=== PATIENT | female | born 1935 | race Caucasian/White ===

== ENCOUNTER 2017-09-28 12:37 | Emergency (ER) | payer MEDICARE, OTHER, SELFPAY ==
[2017-09-28 12:38] VITALS: BP 150/62; PULSE 73; RESP 17; TEMP 36.6; O2SAT 94; BMI 23.6
[2017-09-28 12:50] VITALS: BP 140/63; BP 143/58; BP 149/56; PULSE 66; PULSE 67
--- NOTE | 2017-09-28 12:50 | CT_ITS ---
STUDY: CT BRAIN WITHOUT CONTRAST REASON FOR EXAM: Female, 82 years old. Headache and dizziness. RADIATION DOSAGE (If Supplied By Facility): CTDIvol = ( 44.99 ) mGy, DLP = ( 745.49 ) mGycm TECHNIQUE: Transaxial CT imaging of the brain was performed without administration of intravenous contrast material. Multiplanar reformations are submitted for interpretation. Individualized dose optimization techniques were used for this CT. COMPARISON: Prior comparison studies are not available for review at this time. FINDINGS: Normal soft tissue structures. Normal calvarium. There is asymmetry of the ventricles consistent with an anatomic variant. There are areas of decreased attenuation within the white matter tracts of the supratentorial brain, consistent with microvascular disease changes. Normal basal ganglia and thalami. Normal brainstem. Normal cerebellum. There is no intracranial hemorrhage. There is mild atherosclerotic calcification of intracranial arteries. Normal visualized paranasal sinuses. CT/Brain/Head without Contrast IMPRESSION: 1. Chronic involutional changes of the brain. 2. No CT evidence of acute intracranial hemorrhage. Electronically Signed: Yolanda Kwan MD at 13:52 EST , Service support ,
--- NOTE | 2017-09-28 12:51 | EKG12_ITS ---
Test Reason : DIZZINESS Blood Pressure : / mmHG Vent. Rate : 068 BPM Atrial Rate : 068 BPM P-R Int : 124 ms QRS Dur : 088 ms QT Int : 434 ms P-R-T Axes : 083 057 060 degrees QTc Int : 461 ms Sinus rhythm with Premature supraventricular complexes Otherwise normal ECG Confirmed by BUZZ CHAUHAN, BRIANNE ([id number]), fashion editor SHARI HOOD ([id number]) on 10/01/2017 10:31:49 AM Referred By: SHANT Confirmed By:BRIANNE GERBER MD
--- NOTE | 2017-09-28 13:00 | ED.DCSUM_ITS ---
- ER Visit Summary Date of Service: 09/28/17 Chief Complaint: Lightheaded History of Present Illness: The patient is a [address] Ibarra. She reports that she woke up this morning and was very lightheaded. States that it did not get worse when she stood. She denies any syncope. She denies any vertigo. She denies any chest pain or palpitations. Patient does report that she had nausea this morning. She did not vomit. Patient denies any fever, chills, chest pain, cough, trouble breathing, abdominal pain, diarrhea, melena or hematochezia. She has had no dysuria or frequency. No rash, headache, numbness, weakness, slurred speech, or double vision. Physical Examination: Vitals: Stable. Afebrile. General: Well-nourished and well-developed. Head: Normocephalic atraumatic. Neck: Supple, no lymphadenopathy. No JVD. Nontender. Cardiovascular: Regular rate and rhythm. No murmurs. Respiratory: No respiratory distress. Clear to auscultation bilaterally. Abdominal: Soft, nontender, nondistended, normal bowel sounds. No guarding, rebound, or peritoneal signs. Back: Nontender. Extremities: Nontender, no edema. Skin: Normal color, no rash. Neurologic: Alert and oriented ?3. Cranial nerves II through XII are intact. Normal strength and sensation. Psych: Normal affect. Test Results: EKG is sinus at [address]pecific [address] changes. Is unchanged from 2012. UA is negative. CBC is marked for a white count 11.2 with 78 segmented neutrophils and 11 lymphocytes. Chem-7 is marked for sodium of 135, chloride 96, glucose 135, and BUN/creatinine ratio 22.8. The only other sodium she has had here was in June 2012 and that was 135. Emergency Department Course and Treatment: Patient had negative orthostatic vital signs. She is ambulated about the emergency department without difficulty. Treatment Plan: Patient will be discharged instructions to follow-up with her primary care physician in 1 week for another exam. Return to the emergency department for any worsening symptoms. Disposition: To home in improved and stable condition. Impression: 1. Lightheadedness, uncertain cause. 2. Mild hyponatremia. This note was generated with [employer] software. It may contain incorrect words, spelling, and punctuation that were not noted in review of the chart prior to signing ED Disposition - Plan for ED Patient: Chief Complaint: Dizziness Instructions: ED Near Syncope Unkn Referrals: Karl Ibarra MD [Primary Care Provider] - 1 Week
[2017-09-28 13:10] LABS: Absolute Lymphocyte Count 1.22 X10^3/ul (0.83-4.51); Absolute Neutrophil Count 8.8 X10^3/uL (2.0-7.7); Basophil# 0.08 X10^3/uL; Basophil% 0.7 % (0-1); Eosinophil# 0.19 X10^3/uL; Eosinophils% 1.7 % (0-5); Hematocrit 37.7 % (37-47); Lymphocyte # 1.22 X10^3/ul (4.0); Lymphocyte % 10.9 % (19-41); Mean Corp Hgb Conc 34.5 g/gl (32-36); Mean Corpuscular Hgb 30.2 pg (27.0-32.0); Mean Corpuscular Volume 87.7 fL (81-99); Mean Platelet Vol. 10.4 fl (6.2-12.0); Monocyte# 0.89 X10^3/uL; Neutrophil # 8.76 X10^3/uL (2.7-7.7); Neutrophil % 78.3 % (47-70); Platelet Count 243 K/mm3 (150-450); RBC Distribution Width CV 15.1 % (11.6-14.6); RBC Distribution Width SD 48.3 fl (35.1-43.9); White Blood Count 11.2 K/mm3 (4.4-11.0)
[2017-09-28 13:11] LABS: POSITIVE COUNT NO; POSITIVE DIFFERENTIAL NO; POSITIVE MORPHOLOGY NO
[2017-09-28 13:22] LABS: Anion Gap 10 (5-15); BUN 16 mg/dL (7-18); BUN/Creat Ratio 22.8 RATIO (10-20); Calcium,Total 8.6 mg/dL (8.5-10.1); Chloride 96 mmol/L (98-107); EST Glomerular Filtration Rate 85 mL/min (>60); Est Glom Filt Rate - Afr Amer 103 mL/min (>60); Glucose 135 mg/dL (70-110); Potassium 3.9 mmol/L (3.5-5.1); Sodium Level 130 mmol/L (136-145)
[2017-09-28 13:49] LABS: Bacteria 0 SEEN /hpf (None Seen); Mucous, Urine 0 SEEN /hpf (<or=2+); Squamous Epithelial Cells - UA 0 SEEN /hpf (5-10)
[2017-09-28 13:50] LABS: Color, Urine Yellow (Yellow); Glucose, Dipstick Normal (Normal); Ketone-Dipstick Negative (Negative); Leukocyte Esterase-Dipstick 25 /ul (Negative); Nitrite-Dipstick Negative (Negative); Occult Blood-Urine 10 /ul (Negative); Protein-Dipstick Negative (Negative); Specific Gravity, Urine 1.015 (1.002-1.030); Urine Bilirubin Dipstick Negative (Negative); Urine Clarity Clear (Clear); Urine Urobilinogen Normal (Normal)
[2017-09-28 14:00] LABS: Red Blood Cells-Urine 0-5 SEEN /hpf (0-5); White Blood Cells 0-5 SEEN /hpf (0-5)
[2017-09-28 14:53] VITALS: BP 144/59; PULSE 66; RESP 14
== END 2017-09-28 14:56 | disposition home or self-care (01) ==
LOC: ED 13:12
PROVIDERS: Emergency Provider Emergency Medicine; Family Provider Internal Medicine; PCP Internal Medicine
DX: R42 Dizziness and giddiness (principal); E87.1 Hypo-osmolality and hyponatremia; I49.1 Atrial premature depolarization; I10 Essential (primary) hypertension; E78.00 Pure hypercholesterolemia, unspecified; M81.0 Age-related osteoporosis without current pathological fracture; Z79.899 Other long term (current) drug therapy
CPT/HCPCS: 70450; 80048; 81001; 85025; 93005; 99285; J7030; J7040; A4216

== ENCOUNTER 2019-03-06 17:21 | Inpatient (IN) | payer MEDICARE, OTHER, SELFPAY ==
[2019-03-06] VITALS (9 sets, daily range): BP systolic 131–133; BP diastolic 52–62; PULSE 69–86; RESP 12–22; TEMP 36.6–36.8; O2SAT 83–98; BMI 22.3; BMI 22.9
--- NOTE | 2019-03-06 17:52 | EKG12_ITS ---
Test Reason : SOB Blood Pressure : / mmHG Vent. Rate : 079 BPM Atrial Rate : 079 BPM P-R Int : 122 ms QRS Dur : 090 ms QT Int : 410 ms P-R-T Axes : 078 059 049 degrees QTc Int : 470 ms Normal sinus rhythm Nonspecific ST and T wave abnormality Abnormal ECG Confirmed by BUZZ CHAUHAN, BRIANNE ([id number]), editorial specialist RENAE LOZOYA ([id number]) on 03/09/2019 1:15:14 PM Referred By: Bishop Rowan Confirmed By:BRIANNE GERBER MD
--- NOTE | 2019-03-06 18:00 | RAD_ITS ---
STUDY: X-RAY CHEST REASON FOR EXAM: Female, 83 years old. Shortness of breath TECHNIQUE: Frontal view of the chest COMPARISON: None. FINDINGS: COPD changes are present. Diffuse increased interstitial prominence is present. Right greater than left apical nodular opacities are present. There is no pneumothorax. The heart is enlarged. The visualized osseous structures are within normal limits. RAD/Chest 1 View (Portable) IMPRESSION: COPD changes with interstitial prominence, likely chronic process/scarring, with possible mild superimposed edema. Right greater than left apical nodular opacities, likely scarring, although CT is suggested for further assessment. Cardiomegaly. Electronically Signed: Payam Bernard, at 18:23 EDT Tel , Service support ,
[2019-03-06] MEDS: Ipratropium/Albuterol Sulfate 3 ML AMPUL.NEB INHALATION ×2 (18:23→23:50)
[2019-03-06 18:34] LABS: Absolute Lymphocyte Count 0.72 X10^3/ul (0.83-4.51); Absolute Neutrophil Count 8.9 X10^3/uL (2.0-7.7); Basophil# 0.04 X10^3/uL; Basophil% 0.4 % (0-1); Eosinophil# 0.07 X10^3/uL; Eosinophils% 0.6 % (0-5); Hematocrit 33.7 % (37-47); Hemoglobin 11.8 g/dl (12.0-15.0); Lymphocyte # 0.72 X10^3/ul (4.0); Lymphocyte % 6.3 % (19-41); Mean Corpuscular Hgb 30.3 pg (27.0-32.0); Mean Corpuscular Volume 86.4 fL (81-99); Mean Platelet Vol. 9.2 fl (6.2-12.0); Monocyte# 1.44 X10^3/uL; Monocyte% 12.6 % (0-10); Neutrophil # 8.87 X10^3/uL (2.7-7.7); Neutrophil % 77.9 % (47-70); Platelet Count 306 K/mm3 (150-450); RBC Distribution Width SD 44.1 fl (35.1-43.9); White Blood Count 11.4 K/mm3 (4.4-11.0)
[2019-03-06 18:36] LABS: POSITIVE COUNT YES; POSITIVE DIFFERENTIAL NO; POSITIVE MORPHOLOGY YES
[2019-03-06 18:40] LABS: Anion Gap 7 (5-15); BUN 16 mg/dL (7-18); BUN/Creat Ratio 22.6 RATIO (10-20); Calcium,Total 8.6 mg/dL (8.5-10.1); Chloride 91 mmol/L (98-107); Creatinine, Serum 0.71 mg/dL (0.55-1.02); EST Glomerular Filtration Rate 84 mL/min (>60); Est Glom Filt Rate - Afr Amer 102 mL/min (>60); Estimated Creatinine Clearance 37.45 ml/min; Glucose 155 mg/dL (74-106); Sodium Level 123 mmol/L (136-145)
--- NOTE | 2019-03-06 20:12 | CT_ITS ---
HISTORY: SOB, COUGH TECHNIQUE: Helically acquired images were obtained of the chest following IV contrast as per pulmonary angiogram protocol with multiplanar reformats. A radiation dose optimization technique was used for this scan. IV Contrast dosage and agent: 75 cc [id number] COMPARISON: CXR same date FINDINGS: # of images incl. paperwork: [id number] PULMONARY ARTERIES: Normal in caliber. No pulmonary embolism. AORTA AND GREAT VESSELS: Normal in caliber. No evidence of dissection. Moderate atherosclerosis. HEART AND PERICARDIUM: Heart size normal. No pericardial effusion. No signs of right heart strain. Coronary artery atherosclerosis which is not well evaluated due to cardiac motion. MEDIASTINUM AND MAURICE: Mild paratracheal, prevascular, AP window, subcarinal, and bilateral hilar lymphadenopathy. Esophagus unremarkable. OTHER SOFT TISSUES: Chest wall unremarkable. No axillary or supraclavicular adenopathy. LUNGS AND LARGE AIRWAYS, PLEURA: Multifocal reticular-nodular opacities in a peribronchovascular distribution scattered throughout all lobes of both lungs, with more confluent groundglass opacities in the lung apices. Bronchial wall thickening. Trace bilateral pleural effusions. No pneumothorax. BONES: No acute osseous abnormality. UPPER ABDOMEN: No acute findings. Narrowing of the celiac axis origin secondary to calcific atherosclerosis and mass-effect by the median arcuate ligament with mild poststenotic dilation. CT/CTA Chest W/WO Contrast IMPRESSION: Multifocal bilateral pulmonary opacities most likely pneumonia. Noninfectious pneumonitis possible but less likely. Bronchial wall thickening compatible with bronchitis. Mild mediastinal and bilateral hilar adenopathy. Given the adenopathy and nodularity of some of the pulmonary opacities, follow-up CT after treatment suggested to exclude underlying neoplasm. Trace pleural effusions. Coronary artery atherosclerosis. No pulmonary embolus. No dissection or aneurysm of the thoracic aorta. Individualized dose optimization techniques were used for this CT. at 2105 Reported and signed by: Quirino Avila MD Electronically Signed: Quirino Avila, at 21:03 EDT Tel , Service support ,
--- NOTE | 2019-03-06 20:37 | ED.RN ---
PT IN CT. IV IN LEFT ARM INFILTRATED. NEW IV STARTED IN LEFT AC
--- NOTE | 2019-03-06 21:41 | PCM.HP.STD ---
Problem List (1) Bilateral pneumonia Status: Acute History of Present Illness Date of Admission: 03/06/19 Chief Complaint: SHORTNESS OF BREATH The patient is a 83 year old F with a significant history of renal disease; hypertension; hyperlipidemia; osteoporosis who presented to the emergency department with a 4-day history of persistent shortness of breath. Associated with his symptoms as malaise; chills and wheezing. Initially she had a dry cough but she began taking Mucinex and then her cough became productive. Chest x-ray showed COPD changes with interstitial prominence. Chest CTA showed multifocal bilateral pulmonary opacities most likely pneumonia. Noninfectious pneumonitis possible but less likely. Bronchial wall thickening compatible with bronchitis. Mild mediastinal and bilateral hilar adenopathy. Patient reported that for a period of about 9 years she has had persistent shortness of breath. Past Medical History Medical History: Medical History (Last Reviewed 03/06/19 @ 23:40 by Bishop Rowan MD) HTN (hypertension) I10 Allergies hydroxychloroquine [From Plaquenil] Allergy (Verified 03/06/19 17:26) Other Home Medications: Ambulatory Orders Medication Instructions Recorded Albuterol IH (ProAir) [Proair Hfa 2 puff INHALATION Q6H PRN PRN 09/28/17 (SP)Vent Pts] Amlodipine Besylate [Norvasc] 10 mg PO BID 09/28/17 Bisoprol/Hydrochlorothiazide [Ziac 1 tab PO DAILY 09/28/17 5/6.25 MG Tablet] Calcium Citrate/Vitamin D3 1 each PO DAILY 09/28/17 [Citracal-Vit D3 200 mg-250 Tab] Cholecalciferol (Vitamin D3) 1,000 unit PO DAILY 09/28/17 [Vitamin D3] Lisinopril [Zestril] 20 mg PO DAILY 09/28/17 Multivit-Min/FA/Lycopen/Lutein 1 each PO DAILY 09/28/17 [Centrum Silver Tablet] Nabumetone [Relafen] 500 mg PO BID 09/28/17 Potassium Chloride [Klor-Con 10] 10 meq PO DAILY 09/28/17 Pravastatin [Pravachol] 20 mg PO QHS 09/28/17 Vit C/E/Zn/Coppr/Lutein/Zeaxan 1 each PO BID 09/28/17 [Preservision Areds 2 Softgel] Albuterol Sulfate [Ventolin Hfa] 2 puff IH Q4H PRN PRN 03/06/19 Surgical History: no surgical history Lives: Alone Smoking Status: Never smoker Alcohol: None - *Family History Maternal History Items: - - Parkinson's disease Paternal History Items: Heart Disease Review of Systems Constitutional: Reports: Chills, Malaise. Denies: Fever, Weight Change HEENT: Denies: Head Aches, Sinus Congestion, Sinus Drainage Cardiovascular: Denies: Chest Pain, Palpitations Respiratory: Reports: Cough, Shortness of Breath, Sputum production Gastrointestinal: Denies: Abdominal Pain, Nausea, Vomiting Genitourinary: Denies: Dysuria Musculoskeletal: Denies: Joint Pain, Joint Tenderness Skin: Denies: Rash, Wounds Neurological: Denies: Numbness, Tingling, Focal weakness Psychiatric: Denies: Anxiety, Depression, Homicidal Ideations, Suicidal Ideations Hematologic/ Lymphatic: Denies: Easy Bruising, Easy Bleeding VTE Information - Inpt Only VTE Present on Admission: No VTE Mechan Device Prophylaxis: None VTE Pharm Prophylaxis ordered?: Yes Patient Problems: Active and Suspected Problems (Last Reviewed 03/06/19 @ 22:22 by Bishop Rowna MD) Bilateral pneumonia (Acute) - Physical Exam General: Alert, Oriented x3, Cooperative HEENT: Atraumatic, PERRLA, EOMI, Normocephalic Neck: Supple, No JVD, Negative Carotid Bruits Lungs: Rhonchi, Wheezes Cardiovascular: Regular rate, No murmurs Abdomen: Bowel Sounds Present, Soft, Non Tender Extremities: No edema, Capillary Refill Less than 3 Seconds Skin: No rashes, No breakdown Musculoskeletal: No Tenderness to Palpation of Joints or Extremities Neurological: Cranial nerves II-XII grossly intact Psych/Mental Status: Normal Affect, Appropriate Vital Signs Temp Pulse Resp BP Pulse Ox 98.2 F 86 16 133/58 H 91 03/06/19 17:24 03/06/19 20:54 03/06/19 20:54 03/06/19 20:54 03/06/19 20:54 Oxygen Flow Rate (L/min) 2 Oxygen Delivery Method Nasal Cannula Weight: 58.967 kg Body Mass Index (BMI) 22.3 Laboratory Tests Past 24 Hrs 03/06/19 03/06/19 18:15 18:15 WBC 11.4 H RBC 3.90 L Hgb 11.8 L Hct 33.7 L MCV 86.4 MCH 30.3 MCHC 35.0 RDW 14.0 RDW Differential 44.1 H Plt Count 306 MPV 9.2 Immature Gran % (Auto) 2.200 H Neut % (Auto) 77.9 H Lymph % (Auto) 6.3 L [place] % (Auto) 12.6 H Eos % (Auto) 0.6 Baso % (Auto) 0.4 Absolute Neuts (auto) 8.9 H Absolute Lymphs (auto) 0.72 L Total Counted Not Reportable Sodium 123 L Potassium 4.0 Chloride 91 L Carbon Dioxide 25.0 Anion Gap 7 BUN 16 Creatinine 0.71 Estim Creat Clear Calc 37.45 Est GFR (MDRD) Af Amer 102 Est GFR (MDRD) Non-Af 84 BUN/Creatinine Ratio 22.6 H Glucose 155 H Calcium 8.6 Troponin I < 0.015 Assessment/Plan All Active Problems (Last Reviewed 03/06/19 @ 22:22 by Bishop Rowan MD) Bilateral pneumonia (Acute) The patient is a 83 year old F with a significant history of renal disease; hypertension; hyperlipidemia; osteoporosis who presented to the emergency department with a 4-day history of persistent shortness of breath; malaise; chills and wheezing and radiographic findings of multifocal bilateral pulmonary opacities and bronchial wall thickening concerning for pneumonia and probable acute exacerbation of underlying COPD; and probable pneumonitis. Bilateral pneumonia Chest x-ray showed COPD changes with interstitial prominence. Chest CTA showed multifocal bilateral pulmonary opacities most likely pneumonia. Noninfectious pneumonitis possible but less likely. Bronchial wall thickening compatible with bronchitis. Mild mediastinal and bilateral hilar adenopathy. Patient with mild leukocytosis Blood culture; Legionella antigen screen and Strep antigen ordered Respiratory Gram stain and culture ordered Antibiotics : Received Levaquin in the emergency department. Levaquin continued. IV hydration. Started on gentle IV hydration. DuoNeb scheduled. Albuterol as needed Different diagnoses include pneumonitis; probable COPD exacerbation; viral disease. Methylprednisolone 125 mg IV x1 given because patient was wheezing. Evaluate for further needs of steroids. Respiratory pathogen panel ordered. Trend CBC Hyponatremia This could be due to a pneumonic process or the use of hydrochlorothiazide. We will get serum osmolality; urine osmolality and urine sodium. Hydrate with normal saline. Trend BMP. Hypertension On presentation her blood pressure was stable in regard to her age At home bisoprolol/hydrochlorthiazide combo. Hydrochlorthiazide on hold because of hyponatremia. Hold potassium while holding hydrochlorothiazide. Bisoprolol continued. Amlodipine and lisinopril continued. Add PRN hydralazine. Trend blood pressure and adjust blood pressure medication. Hyperlipidemia Pravastatin continued. Osteoporosis Calcium and vitamin D continued DVT prophylaxis Subcutaneous Lovenox. Code Visit Inpatient E&M: 33471 Init Hosp L3
--- NOTE | 2019-03-06 21:50 | ED.VISSUMM ---
- ER Visit Summary Date of Service: 03/06/19 Chief Complaint: Flu History of Present Illness: The patient is a 83 F with what she describes as the flu. Her symptoms started a week ago. She reports shortness of breath and she cannot catch her breath. She had some nausea but no vomiting or other GI symptoms. She tried Mucinex and albuterol, but they are not helping. History of high blood pressure, hyperlipidemia, raynauds disease. Non-smoker. No regular alcohol use. Physical Examination: Afebrile and vital signs unremarkable. Patient appears nontoxic and in no acute distress. Mild wheezing with expiration diffusely. Heart regular. Skin normal. Calf soft and supple. Test Results: EKG showed sinus rhythm rate of 79. Nonspecific ST and T wave changes. White count 11.4 and hemoglobin 11.8. Sodium 123 and glucose 155. Troponin normal. Initial chest x-ray showed cardiomegaly and bilateral nodules greater on the right side. Follow-up CT was recommended. I was also concerned given her hyponatremia. CT was performed and showed bilateral pneumonia, bronchitis, lymphadenopathy. Repeat CT was advised following symptom resolution. Emergency Department Course and Treatment: Patient treated with a DuoNeb for wheezing. Work-up as above. Her symptoms are primarily infectious. She was treated with Levaquin. She is not septic. No evidence of PE or dissection. Troponin was normal. Patient has a history of hyponatremia. Her previous low was 130, and she is 123 today. Because of her age, bilateral pneumonia, hyponatremia, the hospitalist was contacted for admission. Treatment Plan: As above Disposition: Admission Impression: 1. Bilateral pneumonia 2. Hyponatremia This note was generated with [employer] dictation software. It may contain incorrect words, spelling, and punctuation that were not noted in review of the chart prior to signing ED Disposition - Plan for ED Patient: Referrals: Karl Ibarra MD [Primary Care Provider] -
[2019-03-06] MEDS: levoFLOXacin IV 750 MG/150 ML BAG 100 MG IV (22:21)
[2019-03-06 23:14] LABS: Osmolality, Serum 262 mOsm/KG (280-301)
[2019-03-06] MEDS: guaiFENesin 1,200 MG Tablet 1200 MG PO (23:26)
[2019-03-06] MEDS: 0.9% Normal Saline 1,000 ML 75 ML IV (23:27)
[2019-03-06] MEDS: MethylPREDNISolone 125 MG/2 ML Vial IV (23:27)
[2019-03-07] VITALS (10 sets, daily range): BP systolic 114–121; BP diastolic 45–60; PULSE 76–118; RESP 16–20; TEMP 36.1–36.8; O2SAT 90–98
[2019-03-07 04:06] LABS: Urine Sodium 14 mmol/L (Not Establ.)
[2019-03-07 04:21] LABS: Osmolality, Urine 495 mOsm/KG
[2019-03-07 07:07] LABS: Hematocrit 33.1 % (37-47); Hemoglobin 11.6 g/dl (12.0-15.0); Mean Corpuscular Hgb 29.7 pg (27.0-32.0); Mean Corpuscular Volume 84.7 fL (81-99); Mean Platelet Vol. 9.9 fl (6.2-12.0); Platelet Count 312 K/mm3 (150-450); RBC Distribution Width CV 13.6 % (11.6-14.6); RBC Distribution Width SD 41.4 fl (35.1-43.9); Red Blood Count 3.91 M/mm3 (4.2-5.4); White Blood Count 10.6 K/mm3 (4.4-11.0)
[2019-03-07 07:16] LABS: Differential Indicated MANUAL DIFF; POSITIVE COUNT YES; POSITIVE DIFFERENTIAL YES; POSITIVE MORPHOLOGY YES
[2019-03-07] MEDS: Ipratropium/Albuterol Sulfate 3 ML AMPUL.NEB INHALATION ×3 (07:20→19:12)
[2019-03-07 07:29] LABS: Anion Gap 10 (5-15); BUN 15 mg/dL (7-18); BUN/Creat Ratio 21.7 RATIO (10-20); Calcium,Total 8.2 mg/dL (8.5-10.1); Chloride 93 mmol/L (98-107); Creatinine, Serum 0.69 mg/dL (0.55-1.02); EST Glomerular Filtration Rate 86 mL/min (>60); Est Glom Filt Rate - Afr Amer 105 mL/min (>60); Estimated Creatinine Clearance 37.45 ml/min; Glucose 149 mg/dL (74-106); Potassium 4.1 mmol/L (3.5-5.1); Sodium Level 126 mmol/L (136-145)
[2019-03-07] MEDS: Calcium Carb/Vitamin D 1 TABLET Tablet PO (08:45)
[2019-03-07] MEDS: Multivitamins,Ther W-Minerals Tablet 1 TABLET PO ×2 (08:45→17:07)
[2019-03-07 09:22] LABS: Lymphocyte 1 % (19-41); Metamyelocyte 1 % (0-1); Myelocyte 2 (0-0); Neutrophil-Band 16 % (0-5); Neutrophil-Segmented 80 % (47-70); Total Cells Counted 100 (MANUAL DIFF)
[2019-03-07 09:23] LABS: Platelet Estimate ADEQUATE (ADEQ); Red Cell Morphology NORM C+C NORMAL (NORM C&C)
[2019-03-07 09:24] LABS: Absolute Neutrophil Count 10.2 X10^3/uL (2.0-7.7)
--- NOTE | 2019-03-07 10:02 | CM.UR ---
RN CM Assessment Introduced role of RN CM to patient and her sister Connie.? Patient is alert, oriented and able?to participate in RN CM Assessment. ?Care providers, pharmacy, and demographics verified. Presentation: shortness of breath Admit Dx: CAP Re-Admit: No Barriers/Issues: None PCP: Dr. Ibarra Specialists: Denies Preferred Pharmacy: [facility] Insurance: [facility] A&B, AARP supplement. Rx Benefit:?Yes LNOK: Sister Connie Valdivia LW/HPOA: Has a DNRCC-A on chart. [facility] has a LW and HCPOA-->sister connie Valdivia. Instructed to bring copies in. [facility] she will tell sister where it is and have her bring it. Living Arrangements:? Lives alone in 2 story home with basement. Bedroom is on 2nd floor. has 1/2 bath on first floor. Denies any problems managing stairs. ADL?s: Independent with ambulation and ADL's Transportation: Self, still drives. DME: [facility] DME co: no preference. HHC: None. No preference on Agency if HH needed. SNF: None. Goal: Home without any help. Sister is available to help. DC PLAN: Home, NN noted. Will continue to follow for O2 however believe she will be weaned prior to discharge. She is currently on 1 liter. Quirino Jordan RN, CCM.
--- NOTE | 2019-03-07 10:27 | PCM.PROGNOTE ---
Patient Problems: Active and Suspected Problems (Last Reviewed 03/06/19 @ 23:40 by Bishop Rowan MD) Bilateral pneumonia (Acute) Subjective: The pt is an 83 YOF with a PMH of HTN, HLD and osteoporosis who presented to the ED at [facility] on 03/06/19 c/o SOB, malaise, chills and wheezing that started about 3 days prior to admission to the hospital. She denied nausea/vomiting/diarrhea/abdominal pain/joint tenderness or swelling. Vital signs at presentation to the emergency room were temperature 98.2, pulse rate 84, blood pressure 133/58, respiratory rate 18 and she was 83% on room air and 96% on a 2 L nasal cannula. White blood cell count was elevated at 11.4 with 78% neutrophils. Hemoglobin was 11.8 with normochromic normocytic indices and the platelets were within normal limits. Sodium was decreased at 123 and the chloride was 91. BUN was 16 with a creatinine of 0.71. Random blood sugar was 155. Serum osmolality was low at 262 and troponin was less than 0.015. Urine osmolality was 495 and the urine random sodium 14. She has been taking 6.25 mg of hydrochlorothiazide daily. Legionella and streptococcal antigens in the urine were negative. Chest x-ray showed multiple diffuse patchy infiltrates. CTA of the chest showed multifocal bilateral pulmonary opacities most likely secondary to pneumonia. There was bronchial wall thickening and mild mediastinal and bilateral hilar adenopathy. There were very small pleural effusions in the bases. There was no pulmonary embolus. There was no dissection or aneurysm noted. She was admitted to the hospital and started on Levaquin 750 mg IV Q 48H. She was started on Duoneb aerosols for wheezing in the ED and she received 1 dose of IV solu-medrol 125 mg. Afebrile since admission. Vital signs are stable. Pulse ox is 96 to 98% on 2 L nasal cannula. Cough is nonproductive and she has been unable to produce a sputum. She states she is less SOB today. She denies chest pain. No N/v/d/abdominal pain. - Physical Exam General: Alert, Oriented x3, Cooperative, No apparent distress, Well developed, Well nourished HEENT: Atraumatic, PERRLA, EOMI, Normocephalic Oral: Moist Mucosa Neck: Supple, Negative Carotid Bruits Lungs: Diminished, - - scattered mild crackles, no wheezing, symmetric chest rise, no conversational dyspnea and no accessory muscle use Cardiovascular: Regular rate, Regular Rhythm, Normal S1, Normal S2, No Gallop Abdomen: Bowel Sounds Present, Soft, Non Tender, Non-Distended Extremities: No clubbing, No cyanosis, No edema Skin: No rashes Neurological: Cranial nerves II-XII grossly intact, Neuro grossly intact Psych/Mental Status: Normal Affect, Appropriate Vital Signs Temp Pulse Resp BP Pulse Ox 97.0 F L 84 18 121/60 H 90 03/07/19 08:30 03/07/19 08:45 03/07/19 08:30 03/07/19 08:30 03/07/19 08:30 Oxygen Flow Rate (L/min) 2 Oxygen Delivery Method Nasal Cannula Weight: 133 lb 9.602 oz Body Mass Index (BMI) 22.9 Intake and Output for Last 24 Hours 03/05/19 03/06/19 03/07/19 23:59 23:59 23:59 Intake Total 674 / 674 Output Total 200 / 200 Balance 474 / 474 Microbiology Past 72 Hours 03/07/19 01:50 Legionella Antigen - Final Urine, Clean Catch 03/07/19 01:50 Streptococcus pneumoniae Antigen (M - Final Urine, Clean Catch Laboratory Tests Past 24 Hrs 03/06/19 03/06/19 03/06/19 18:15 18:15 18:15 WBC 11.4 H RBC 3.90 L Hgb 11.8 L Hct 33.7 L MCV 86.4 MCH 30.3 MCHC 35.0 RDW 14.0 RDW Differential 44.1 H Plt Count 306 MPV 9.2 Immature Gran % (Auto) 2.200 H Neut % (Auto) 77.9 H Lymph % (Auto) 6.3 L [place] % (Auto) 12.6 H Eos % (Auto) 0.6 Baso % (Auto) 0.4 Absolute Neuts (auto) 8.9 H Absolute Lymphs (auto) 0.72 L Total Counted Not Reportable Neutrophils % (Manual) Band Neutrophils % Lymphocytes % (Manual) Metamyelocytes % Myelocytes % Diff Path Review Platelet Estimate RBC Morphology Sodium 123 L Potassium 4.0 Chloride 91 L Carbon Dioxide 25.0 Anion Gap 7 BUN 16 Creatinine 0.71 Estim Creat Clear Calc 37.45 Est GFR (MDRD) Af Amer 102 Est GFR (MDRD) Non-Af 84 BUN/Creatinine Ratio 22.6 H Glucose 155 H Serum Osmolality 262 L Calcium 8.6 Troponin I < 0.015 Urine Osmolality Ur Random Sodium 03/07/19 03/07/19 03/07/19 01:50 01:50 06:20 WBC RBC Hgb Hct MCV MCH MCHC RDW RDW Differential Plt Count MPV Immature Gran % (Auto) Neut % (Auto) Lymph % (Auto) [place] % (Auto) Eos % (Auto) Baso % (Auto) Absolute Neuts (auto) Absolute Lymphs (auto) Total Counted Neutrophils % (Manual) Band Neutrophils % Lymphocytes % (Manual) Metamyelocytes % Myelocytes % Diff Path Review Platelet Estimate RBC Morphology Sodium 126 L Potassium 4.1 Chloride 93 L Carbon Dioxide 23.0 Anion Gap 10 BUN 15 Creatinine 0.69 Estim Creat Clear Calc 37.45 Est GFR (MDRD) Af Amer 105 Est GFR (MDRD) Non-Af 86 BUN/Creatinine Ratio 21.7 H Glucose 149 H Serum Osmolality Calcium 8.2 L Troponin I Urine Osmolality 495 Ur Random Sodium 14 03/07/19 06:20 WBC 10.6 RBC 3.91 L Hgb 11.6 L Hct 33.1 L MCV 84.7 MCH 29.7 MCHC 35.0 RDW 13.6 RDW Differential 41.4 Plt Count 312 MPV 9.9 Immature Gran % (Auto) Neut % (Auto) Not Reportable Lymph % (Auto) [place] % (Auto) Eos % (Auto) Baso % (Auto) Absolute Neuts (auto) 10.2 H Absolute Lymphs (auto) 0.10 L Total Counted 100 Neutrophils % (Manual) 80 H Band Neutrophils % 16 H Lymphocytes % (Manual) 1 L Metamyelocytes % 1 Myelocytes % 2 H Diff Path Review May foll Platelet Estimate ADEQUATE RBC Morphology NORM C+C Sodium Potassium Chloride Carbon Dioxide Anion Gap BUN Creatinine Estim Creat Clear Calc Est GFR (MDRD) Af Amer Est GFR (MDRD) Non-Af BUN/Creatinine Ratio Glucose Serum Osmolality Calcium Troponin I Urine Osmolality Ur Random Sodium Medical Necessity - Tobacco Use Smoking Status: Never smoker Assessment/Plan All Active Problems (Last Reviewed 03/06/19 @ 23:40 by Bishop Rowan MD) Bilateral pneumonia (Acute) Impressions 1. Multilobar community-acquired pneumonia with negative Legionella, negative streptococcal antigen and negative respiratory panel. Cough is nonproductive. 2. Acute respiratory insufficiency with hypoxia 3. Hypertension 4. Hyperlipidemia 5. History of osteoporosis Continue Levaquin Continue enoxaparin for DVT prophylaxis Incentive spirometry and PEP Check mycoplasma antibodies Recheck lab in the a.m. Code Visit Inpatient E&M: 78341 Subs Hosp L2
[2019-03-07] MEDS: Bisoprolol Fumarate 5 MG Tablet PO (10:30)
[2019-03-07] MEDS: Enoxaparin 40 MG/0.4 ML Syringe SC (10:30)
[2019-03-07] MEDS: amLODIPine 10 MG Tablet PO ×2 (10:30→21:35)
[2019-03-07] MEDS: Etodolac 200 MG Capsule PO ×2 (10:30→21:35)
[2019-03-07] MEDS: Lisinopril 20 MG Tablet PO (10:30)
[2019-03-07] MEDS: guaiFENesin 1,200 MG Tablet 1200 MG PO ×2 (10:30→21:35)
[2019-03-07] MEDS: 0.9% NaCl Peripheral Flush Adult/Peds IV (13:02)
[2019-03-07] MEDS: Pravastatin 20 MG Tablet PO (21:35)
[2019-03-08] VITALS (11 sets, daily range): BP systolic 109–121; BP diastolic 37–66; PULSE 72–106; RESP 16–19; TEMP 36.7–37.1; O2SAT 93–97
[2019-03-08 05:59] LABS: Hematocrit 28.2 % (37-47); Hemoglobin 10.1 g/dl (12.0-15.0); Mean Corp Hgb Conc 35.8 g/gl (32-36); Mean Corpuscular Hgb 30.4 pg (27.0-32.0); Mean Corpuscular Volume 84.9 fL (81-99); Mean Platelet Vol. 9.1 fl (6.2-12.0); Platelet Count 344 K/mm3 (150-450); RBC Distribution Width CV 13.6 % (11.6-14.6); RBC Distribution Width SD 40.3 fl (35.1-43.9); Red Blood Count 3.32 M/mm3 (4.2-5.4); White Blood Count 20.7 K/mm3 (4.4-11.0)
[2019-03-08 06:30] LABS: ALB/GLOB Ratio 0.5 RATIO (0.9-2.4); AST(SGOT) 44 U/L (15-37); Alanine Aminotransfer ALT/SGPT 56 U/L (13-56); Alkaline Phosphatase 145 U/L (45-117); Anion Gap 7 (5-15); BUN 28 mg/dL (7-18); BUN/Creat Ratio 32.9 RATIO (10-20); Calcium,Total 8.3 mg/dL (8.5-10.1); Chloride 95 mmol/L (98-107); Creatinine, Serum 0.85 mg/dL (0.55-1.02); EST Glomerular Filtration Rate 68 mL/min (>60); Est Glom Filt Rate - Afr Amer 82 mL/min (>60); Estimated Creatinine Clearance 44.06 ml/min; Globulin 3.8 g/dL (2.2-4.2); Glucose 133 mg/dL (74-106); Magnesium 2.2 mg/dL (1.6-2.6); Phosphorus 2.4 mg/dL (2.5-4.9); Potassium 4.7 mmol/L (3.5-5.1); Protein, Total 5.8 g/dL (6.4-8.2); Sodium Level 128 mmol/L (136-145)
[2019-03-08 06:32] LABS: Scan Indicated on CBC? Y/N NO
[2019-03-08] MEDS: Ipratropium/Albuterol Sulfate 3 ML AMPUL.NEB INHALATION ×4 (07:03→19:13)
[2019-03-08 07:49] LABS: BNP,B-Type NATRIURETIC PEPTIDE 261.7 pg/mL (0-100)
[2019-03-08] MEDS: Calcium Carb/Vitamin D 1 TABLET Tablet PO (08:38)
[2019-03-08] MEDS: Multivitamins,Ther W-Minerals Tablet 1 TABLET PO ×2 (08:38→17:13)
[2019-03-08] MEDS: Bisoprolol Fumarate 5 MG Tablet PO (10:45)
[2019-03-08] MEDS: Lisinopril 20 MG Tablet PO (10:45)
[2019-03-08] MEDS: Enoxaparin 40 MG/0.4 ML Syringe SC (10:45)
[2019-03-08] MEDS: Etodolac 200 MG Capsule PO ×2 (10:45→21:12)
[2019-03-08] MEDS: guaiFENesin 1,200 MG Tablet 1200 MG PO ×2 (10:45→21:12)
[2019-03-08] MEDS: amLODIPine 10 MG Tablet PO ×2 (10:45→21:11)
--- NOTE | 2019-03-08 12:58 | PCM.PROGNOTE ---
Patient Problems: Active and Suspected Problems (Last Reviewed 03/06/19 @ 23:40 by Bishop Rowan MD) Bilateral pneumonia (Acute) Subjective: The patient is an 83-year-old female with a past medical history of hypertension, hyperlipidemia and osteoporosis who was admitted to the hospital with multilobar community-acquired pneumonia and hypoxia. Legionella and streptococcal antigens in the urine are negative. Day #3 antibiotics Afebrile since admission. Vital signs are stable. She is 97% saturated on room air today. She has had 1850 cc of urine since midnight. All lab was personally reviewed. White blood cell count is 20.7, up from 10.6 yesterday (she received 125 mg of solu-medrol yesterday) Hemoglobin is 10.1 following hydration and platelets are within normal limits. Sodium is slowly improving and is 128 today with a chloride of 95. Serum bicarb is normal at 26. BUN is 28 with a creatinine of 0.85. BNP today is 261. Mycoplasma antibodies are pending. Gram stain showed 2+ white blood cells and 2+ red blood cells with no bacteria and the culture is pending. Respiratory panel was negative. One blood culture drawn in the ER is pending. Sitting up in a chair watching the baseball game. No cough, no CP. She is currently on RA and maintaining an appropriate oxygen saturation. She did ambulate the entire distance of the cough and dropped to 84% on room air after walking three quarters of the loop. He denies shortness of breath at rest. - Physical Exam General: Alert, Oriented x3, Cooperative, No apparent distress, - - looks much better than yesterday and she is spunky and witty and back to her normal self Oral: Moist Mucosa Neck: Supple, No JVD Lungs: - - few scattered crackles, no wheezing Cardiovascular: Regular rate, Regular Rhythm, Normal S1, Normal S2, No rub noted, No Gallop Abdomen: Bowel Sounds Present, Soft, Non Tender, Non-Distended Extremities: No clubbing, No cyanosis, No edema Skin: No rashes Neurological: Cranial nerves II-XII grossly intact, Neuro grossly intact Psych/Mental Status: Normal Affect, Appropriate Vital Signs Temp Pulse Resp BP Pulse Ox 98.0 F 96 18 111/37 L 97 03/08/19 09:04 03/08/19 10:53 03/08/19 10:53 03/08/19 09:04 03/08/19 09:06 Oxygen Flow Rate (L/min) 1 Oxygen Delivery Method Room Air Weight: 133 lb 9.602 oz Body Mass Index (BMI) 22.9 Intake and Output for Last 24 Hours 03/06/19 03/07/19 03/08/19 23:59 23:59 23:59 Intake Total 3016 / 3116 1060 / 1060 Output Total 300 / 300 1850 / 1850 Balance 2716 / 2816 -790 / -790 Microbiology Past 72 Hours 03/08/19 08:00 Gram Stain - Final Sputum, Expectorated/Coughed 03/06/19 23:45 Respiratory Panel (PCR) - Final Mucosa - Nasopharyngeal 03/07/19 01:50 Legionella Antigen - Final Urine, Clean Catch 03/07/19 01:50 Streptococcus pneumoniae Antigen (M - Final Urine, Clean Catch Laboratory Tests Past 24 Hrs 03/08/19 03/08/19 03/08/19 05:34 05:34 05:34 WBC 20.7 H RBC 3.32 L Hgb 10.1 L Hct 28.2 L MCV 84.9 MCH 30.4 MCHC 35.8 RDW 13.6 RDW Differential 40.3 Plt Count 344 MPV 9.1 Sodium 128 L Potassium 4.7 Chloride 95 L Carbon Dioxide 26.0 Anion Gap 7 BUN 28 H Creatinine 0.85 Estim Creat Clear Calc 44.06 Est GFR (MDRD) Af Amer 82 Est GFR (MDRD) Non-Af 68 BUN/Creatinine Ratio 32.9 H Glucose 133 H Calcium 8.3 L Phosphorus 2.4 L Magnesium 2.2 Total Bilirubin 0.30 AST 44 H ALT 56 Alkaline Phosphatase 145 H B-Natriuretic Peptide Total Protein 5.8 L Albumin 2.0 L Globulin 3.8 Albumin/Globulin Ratio 0.5 L Mycoplasma pneumon IgG Pending Mycoplasma pneumon IgM Pending 03/08/19 05:34 WBC RBC Hgb Hct MCV MCH MCHC RDW RDW Differential Plt Count MPV Sodium Potassium Chloride Carbon Dioxide Anion Gap BUN Creatinine Estim Creat Clear Calc Est GFR (MDRD) Af Amer Est GFR (MDRD) Non-Af BUN/Creatinine Ratio Glucose Calcium Phosphorus Magnesium Total Bilirubin AST ALT Alkaline Phosphatase B-Natriuretic Peptide 261.7 H Total Protein Albumin Globulin Albumin/Globulin Ratio Mycoplasma pneumon IgG Mycoplasma pneumon IgM Medical Necessity - Tobacco Use Smoking Status: Never smoker Assessment/Plan All Active Problems (Last Reviewed 03/06/19 @ 23:40 by Bishop Rowan MD) Bilateral pneumonia (Acute) Impressions 1. Multilobar community-acquired pneumonia with negative Legionella, negative streptococcal antigen and negative respiratory panel. Cough is nonproductive. Finally able to obtain a sputum today however patient has been on antibiotics. 2. Acute respiratory insufficiency with hypoxia 3. Hypertension 4. Hyperlipidemia 5. History of osteoporosis 6. Hyponatremia-gradually improving. Urine sodium and urine osmolality are not consistent with sodium depletion however the patient has been on a very small dose of hydrochlorothiazide as an outpatient and this may be clouding the picture. I tend to think that she is dry because she was not eating and she was on a diuretic. BUN may be increased today because she was on steroids initially and this was discontinued because she was not wheezing. the increase in the WBC also probably reflects the steroids and not a worsening of the infection 7. Hypophosphatemia Continue Levaquin Continue enoxaparin for DVT prophylaxis Incentive spirometry and PEP Await the results of the mycoplasma antibodies 1 L of normal saline and then discontinue Supplement phosphorus Recheck PA lateral chest x-ray in the a.m. Continue DuoNeb aerosols every 4 hours while awake and every 2 hour albuterol as needed Ambulatory pulse ox prior to discharge Code Visit Inpatient E&M: 16075 Subs Hosp L2
[2019-03-08] MEDS: 0.9% Normal Saline 1,000 ML 100 ML IV (17:15)
[2019-03-08] MEDS: 0.9% NaCl Peripheral Flush Adult/Peds IV (17:16)
[2019-03-08] MEDS: levoFLOXacin IV 750 MG/150 ML BAG 100 MG IV (21:11)
[2019-03-08] MEDS: Na Biphos/Potassium Phosphate PACKET 1 PACKET PO (21:12)
[2019-03-08] MEDS: Pravastatin 20 MG Tablet PO (21:12)
[2019-03-09 02:20] VITALS: BP 116/56; PULSE 87; RESP 18; TEMP 36.8; O2SAT 92
[2019-03-09] MEDS: Na Biphos/Potassium Phosphate PACKET 1 PACKET PO ×2 (05:33→14:04)
[2019-03-09 06:13] LABS: Hematocrit 30.3 % (37-47); Hemoglobin 10.5 g/dl (12.0-15.0); Mean Corp Hgb Conc 34.7 g/gl (32-36); Mean Corpuscular Hgb 30.1 pg (27.0-32.0); Mean Corpuscular Volume 86.8 fL (81-99); Mean Platelet Vol. 8.8 fl (6.2-12.0); Platelet Count 343 K/mm3 (150-450); RBC Distribution Width CV 14.5 % (11.6-14.6); RBC Distribution Width SD 45.4 fl (35.1-43.9); Red Blood Count 3.49 M/mm3 (4.2-5.4); White Blood Count 19.4 K/mm3 (4.4-11.0)
[2019-03-09 06:34] LABS: Scan Indicated on CBC? Y/N NO
[2019-03-09 06:35] LABS: Anion Gap 7 (5-15); BUN 24 mg/dL (7-18); BUN/Creat Ratio 28.3 RATIO (10-20); Calcium,Total 8.3 mg/dL (8.5-10.1); Chloride 100 mmol/L (98-107); Creatinine, Serum 0.85 mg/dL (0.55-1.02); EST Glomerular Filtration Rate 68 mL/min (>60); Est Glom Filt Rate - Afr Amer 83 mL/min (>60); Estimated Creatinine Clearance 44.06 ml/min; Glucose 97 mg/dL (74-106); Potassium 4.2 mmol/L (3.5-5.1); Sodium Level 134 mmol/L (136-145)
[2019-03-09 07:29] VITALS: PULSE 85; RESP 16; O2SAT 94
[2019-03-09] MEDS: Ipratropium/Albuterol Sulfate 3 ML AMPUL.NEB INHALATION ×3 (07:29→15:03)
--- NOTE | 2019-03-09 08:15 | RAD_ITS ---
STUDY: X-RAY CHEST REASON FOR EXAM: Female, 83 years old. Shortness of breath. TECHNIQUE: Single AP portable view of the chest. COMPARISON: Comparison is made with prior study dated March 06, 2019. FINDINGS: Hyperinflation. Persistent infiltrate in the left midlung which has improved. Stable diffuse bilateral increased interstitial markings with areas of confluence at the lung bases as well as at the lung apices. Blunting of the left costophrenic angle. Normal size heart. Normal mediastinum and rosa elena. Normal visualized pulmonary arteries. There is atherosclerotic calcification of the aortic arch with tortuosity. There is demineralization of the osseous structures. Normal visualized ribs, clavicles, and shoulders. There is no demonstrated abnormality of the visualized soft tissue structures of the upper abdomen. RAD/Chest PA and Lateral IMPRESSION: Essentially stable examination with slight improvement in the left mid lung infiltrate. Electronically Signed: Eitan Pringle, at 9:29 EDT , Service support ,
[2019-03-09] MEDS: amLODIPine 10 MG Tablet PO (09:18)
[2019-03-09] MEDS: Multivitamins,Ther W-Minerals Tablet 1 TABLET PO (09:18)
[2019-03-09] MEDS: Etodolac 200 MG Capsule PO (09:18)
[2019-03-09] MEDS: Calcium Carb/Vitamin D 1 TABLET Tablet PO (09:18)
[2019-03-09] MEDS: Bisoprolol Fumarate 5 MG Tablet PO (09:19)
[2019-03-09] MEDS: Enoxaparin 40 MG/0.4 ML Syringe SC (09:19)
[2019-03-09] MEDS: Lisinopril 20 MG Tablet PO (09:19)
[2019-03-09] MEDS: guaiFENesin 1,200 MG Tablet 1200 MG PO (09:19)
[2019-03-09 09:25] VITALS: BP 120/61; PULSE 97; RESP 18; TEMP 37.2; O2SAT 94
[2019-03-09 10:36] VITALS: PULSE 84; RESP 18
[2019-03-09 13:56] VITALS: BP 143/47; PULSE 89; RESP 18; TEMP 36.7; O2SAT 94
[2019-03-09 15:03] VITALS: PULSE 81; RESP 18
--- NOTE | 2019-03-09 15:06 | DCINST_ITS ---
- Discharge Diagnoses Current Active Problems: Current Active and Chronic Problems (Last Reviewed 03/06/19 @ 23:40 by Bishop Rowan MD) Bilateral pneumonia (Acute) You will use the following diet at home:: No restrictions Your food should be the consistency of: Regular Call your doctor if you observe: Fever of 101 or Higher, Shortness of breath Instructions: Treating Pneumonia Allergies/Adverse Reactions: Allergies hydroxychloroquine [From Plaquenil] Allergy (Verified 03/06/19 17:26) Other Medications to take at Discharge Albuterol IH (ProAir) [Proair Hfa] 2 puff INHALATION Q6H PRN PRN 09/28/17 Amlodipine Besylate [Norvasc] 10 mg PO BID 09/28/17 Calcium Citrate/Vitamin D3 [Citracal-Vit D3 200 mg-250 Tab] 1 each PO DAILY 09/28/17 Cholecalciferol (Vitamin D3) [Vitamin D3] 1,000 unit PO DAILY 09/28/17 Lisinopril [Zestril] 20 mg PO DAILY 09/28/17 Multivit-Min/FA/Lycopen/Lutein [Centrum Silver Tablet] 1 each PO DAILY 09/28/17 Nabumetone [Relafen] 500 mg PO BID 09/28/17 Pravastatin [Pravachol] 20 mg PO QHS 09/28/17 Vit C/E/Zn/Coppr/Lutein/Zeaxan [Preservision Areds 2 Softgel] 1 each PO BID 09/28/17 Albuterol Sulfate [Ventolin Hfa] 2 puff IH Q4H PRN PRN 03/06/19 Bisoprolol Fumarate [Zebeta (Beta Sally)] 5 mg PO DAILY #30 tab 03/09/19 Guaifenesin [Mucinex] 1,200 mg PO BID #10 tab 03/09/19 levoFLOXacin tablet [Levaquin tablet] 500 mg PO DAILY #5 tab 03/09/19 The following prescriptions were given: levoFLOXacin tablet [Levaquin tablet] 500 mg PO DAILY #5 tab Transmission Status: Pending to [facility] Guaifenesin [Mucinex] 1,200 mg PO BID #10 tab Transmission Status: Pending to [facility] Bisoprolol Fumarate [Zebeta (Beta Sally)] 5 mg PO DAILY #30 tab Transmission Status: Pending to [facility] Orders to be completed after discharge: Chest PA and Lateral [RAD] Time Frame: 6 Weeks, Location: None Selected Primary Care Physician: Karl Ibarra MD [Primary Care Provider] - Within 2 Weeks Test Results: Test results from this visit will be discussed in further detail at your follow- up appointment, if applicable.
--- NOTE | 2019-03-09 15:08 | PCM.DC.SUM ---
Discharge Date and Diagnosis - Problem List Patient Problems: Active and Suspected Problems (Last Reviewed 03/06/19 @ 23:40 by Bishop Rowan MD) Bilateral pneumonia (Acute) Hyponatremia (Acute) Date of Admission: 03/06/19 Date of Discharge: 03/09/19 - Primary Discharge Diagnosis Active and Suspected Problems (Last Reviewed 03/06/19 @ 23:40 by Bishop Rowan MD) Bilateral pneumonia (Acute) Hospital Course and Treatment Imaging Results: 03/09/19 08:15 Chest PA and Lateral [RAD] AM (NON MEDS) Clinical Impression(s) from Imaging Studies Chest X-Ray 03/06/19 18:00 IMPRESSION: COPD changes with interstitial prominence, likely chronic process/scarring, with possible mild superimposed edema. Right greater than left apical nodular opacities, likely scarring, although CT is suggested for further assessment. Cardiomegaly. Electronically Signed: Payam Bernard, at 18:23 EDT Tel , Service support , Chest CTA 03/06/19 20:12 IMPRESSION: Multifocal bilateral pulmonary opacities most likely pneumonia. Noninfectious pneumonitis possible but less likely. Bronchial wall thickening compatible with bronchitis. Mild mediastinal and bilateral hilar adenopathy. Given the adenopathy and nodularity of some of the pulmonary opacities, follow-up CT after treatment suggested to exclude underlying neoplasm. Trace pleural effusions. Coronary artery atherosclerosis. No pulmonary embolus. No dissection or aneurysm of the thoracic aorta. Individualized dose optimization techniques were used for this CT. at 2104 Reported and signed by: Quirino Avila MD Electronically Signed: Quirino Avila, at 21:03 EDT Tel , Service support , Chest X-Ray 03/09/19 08:15 IMPRESSION: Essentially stable examination with slight improvement in the left mid lung infiltrate. Electronically Signed: Eitan Pringle, at 9:29 EDT , Service support , Operations: None Procedures: None Summary of Care Provided: The patient is a 83 year old F tenths with shortness of breath. Patient had a CTA of her chest that showed multifocal bilateral pulmonary infiltrates. Patient was admitted started on Levaquin. Patient had a pneumonia work-up came back unremarkable. Today, I evaluate the patient and patient is breathing well, on room air. Patient will be discharged to home to complete 5 more days of Levaquin. Patient require a chest x-ray in about 6 weeks time to see about resolution of her pneumonia. Patient also had hyponatremia upon arrival, sodium is 123. The hyponatremia is likely attributable to HCTZ which has been held. Patient will continue to hold the HCTZ. Patient was on potassium supplementation as well along with that but I will hold that as her potassium is normal and she is no longer receiving HCTZ. Patient was on a combination medication with bisoprolol and HCTZ. The bisoprolol will be continued but the HCTZ office to be discontinued. [] Patient Problems: Active and Suspected Problems (Last Reviewed 03/06/19 @ 23:40 by Bishop Rowan MD) Bilateral pneumonia (Acute) Hyponatremia (Acute) - Physical Exam General: Alert, No apparent distress, - - Appears younger than stated age HEENT: Atraumatic, Normocephalic Oral: Moist Mucosa, No Gingival or Mucosal Lesions/ Ulcerations Lungs: Clear to auscultation, Normal air movement, No rhonchi, No wheeze, No rales Cardiovascular: Regular rate, Regular Rhythm, Normal S1, Normal S2, No murmurs Vital Signs Temp Pulse Resp BP Pulse Ox 36.7 C 81 18 143/47 H 94 03/09/19 13:56 03/09/19 15:03 03/09/19 15:03 03/09/19 13:56 03/09/19 13:56 Oxygen Flow Rate (L/min) 1 Oxygen Delivery Method Room Air Weight: 60.6 kg Body Mass Index (BMI) 22.9 Intake and Output for Last 24 Hours 03/07/19 03/08/19 03/09/19 23:59 23:59 23:59 Intake Total 3016 / 3116 1720 / 2764 1844 / 1844 Output Total 300 / 300 2850 / 3750 1400 / 1400 Balance 2716 / 2816 -1130 / -986 444 / 444 Microbiology Past 72 Hours 03/08/19 08:00 Gram Stain - Final Sputum, Expectorated/Coughed Respiratory Culture - Preliminary 03/06/19 23:18 Blood Culture - Preliminary Blood Culture (Wb) - Right Wrist No growth in 48 hours. 03/06/19 23:45 Respiratory Panel (PCR) - Final Mucosa - Nasopharyngeal 03/07/19 01:50 Legionella Antigen - Final Urine, Clean Catch 03/07/19 01:50 Streptococcus pneumoniae Antigen (M - Final Urine, Clean Catch Laboratory Tests Past 24 Hrs 03/09/19 03/09/19 05:42 05:42 WBC 19.4 H RBC 3.49 L Hgb 10.5 L Hct 30.3 L MCV 86.8 MCH 30.1 MCHC 34.7 RDW 14.5 RDW Differential 45.4 H Plt Count 343 MPV 8.8 Sodium 134 L Potassium 4.2 Chloride 100 Carbon Dioxide 27.0 Anion Gap 7 BUN 24 H Creatinine 0.85 Estim Creat Clear Calc 44.06 Est GFR (MDRD) Af Amer 83 Est GFR (MDRD) Non-Af 68 BUN/Creatinine Ratio 28.3 H Glucose 97 Calcium 8.3 L Discharge Diet: No Restrictions Call your doctor if you observe: Fever of 101 or Higher, Shortness of breath Home Medications: Medications to take at Discharge Albuterol IH (ProAir) [Proair Hfa] 2 puff INHALATION Q6H PRN PRN 09/28/17 Amlodipine Besylate [Norvasc] 10 mg PO BID 09/28/17 Calcium Citrate/Vitamin D3 [Citracal-Vit D3 200 mg-250 Tab] 1 each PO DAILY 09/28/17 Cholecalciferol (Vitamin D3) [Vitamin D3] 1,000 unit PO DAILY 09/28/17 Lisinopril [Zestril] 20 mg PO DAILY 09/28/17 Multivit-Min/FA/Lycopen/Lutein [Centrum Silver Tablet] 1 each PO DAILY 09/28/17 Nabumetone [Relafen] 500 mg PO BID 09/28/17 Pravastatin [Pravachol] 20 mg PO QHS 09/28/17 Vit C/E/Zn/Coppr/Lutein/Zeaxan [Preservision Areds 2 Softgel] 1 each PO BID 09/28/17 Albuterol Sulfate [Ventolin Hfa] 2 puff IH Q4H PRN PRN 03/06/19 Bisoprolol Fumarate [Zebeta (Beta Sally)] 5 mg PO DAILY #30 tab 03/09/19 Guaifenesin [Mucinex] 1,200 mg PO BID #10 tab 03/09/19 levoFLOXacin tablet [Levaquin tablet] 500 mg PO DAILY #5 tab 03/09/19 Following Prescrptions Were Given to Patient: levoFLOXacin tablet [Levaquin tablet] 500 mg PO DAILY #5 tab Transmission Status: Pending to [facility] Guaifenesin [Mucinex] 1,200 mg PO BID #10 tab Transmission Status: Pending to [facility] Bisoprolol Fumarate [Zebeta (Beta Sally)] 5 mg PO DAILY #30 tab Transmission Status: Pending to [facility] Other Amb Orders: Chest PA and Lateral [RAD] Time Frame: 6 Weeks, Location: None Selected Primary Care Physician: Karl Ibarra MD [Primary Care Provider] - Within 2 Weeks Patient Instructions: Treating Pneumonia Disposition: Home Minutes spent on discharge:: 32 Patient Condition:: Good Medical Necessity - Tobacco Use Smoking Status: Never smoker Meaningful Use Info Meaningful Use Diagnoses (Choose all that apply): None applicable Code Visit Inpatient E&M: 24216 Disch Hosp
[2019-03-10 09:56] LABS: Pathologist Review Reviewed
[2019-03-10 10:02] LABS: Pathologist Review Reviewed
[2019-03-11 13:05] LABS: Mycoplasma Pneum AB IgG 102 U/mL (0-99); Mycoplasma pneum. AB IgM < 770 U/mL (0-769)
== END 2019-03-09 16:59 | disposition home or self-care (01) | DRG 194 ==
LOC: ED 18:17 → MS3 22:19
PROVIDERS: Internal Medicine; Admitting Provider Hospitalist; Emergency Provider Emergency Medicine; Family Provider Internal Medicine; PCP Internal Medicine; Referring Provider Hospitalist
DX: J18.9 Pneumonia, unspecified organism (principal); E87.1 Hypo-osmolality and hyponatremia; I10 Essential (primary) hypertension; E78.5 Hyperlipidemia, unspecified; M81.0 Age-related osteoporosis without current pathological fracture; E83.39 Other disorders of phosphorus metabolism
CPT/HCPCS: 36415; 71045; 71046; 71275; 80048; 80053; 83735; 83880; 83930; 83935; 84100; 84300; 84484; 85025; 85027; 86738; 87040; 87070; 87205; 87449; 87633; 93005; 94640; 94667; 94668; 97162; 97165; 97530; 97802; 99284; J7030; Q9967; A4216

== ENCOUNTER 2019-06-12 17:15 | Emergency (ER) | payer MEDICARE, OTHER, SELFPAY ==
[2019-03-06 22:42] VITALS: BMI 22.9
[2019-06-12 17:17] VITALS: BP 152/72; PULSE 70; RESP 16; TEMP 37.4; O2SAT 97; BMI 22.7
[2019-06-12 17:25] VITALS: PULSE 76; RESP 18; O2SAT 95
--- NOTE | 2019-06-12 18:02 | ED.VISSUMM ---
- ER Visit Summary Date of Service: 06/12/19 Chief Complaint: Tongue swelling History of Present Illness: The patient is a 84 F history of hypertension COPD and pneumonia several months ago. Patient is on both an GOOD inhibitor for blood pressure lisinopril and a medication for her lungs both of which can cause angioneurotic edema. She is never had this before but she noticed last night that her tongue felt swollen. She denies any trouble breathing or swallowing. She is never had this happen before. Physical Examination: Older female no acute distress. Vital signs stable afebrile. Pulse ox 95% on room air. No distress. HEENT exam unremarkable except tongue is mildly swollen. No airway compromise. Uvula and posterior pharynx are normal. No drooling. No stridor. Neck nontender. No lymphadenopathy. Lungs clear to auscultation bilaterally. Heart regular rhythm no murmur. Abdomen is soft and nontender. Patient moving all 4 extremities. Neurovascular intact. Skin is unremarkable without rash. There is no edema. Neurologically she is awake and alert. Test Results: None Emergency Department Course and Treatment: Mild tongue swelling may be secondary angioneurotic edema versus allergic reaction. She will be given IV Solu-Medrol, Pepcid and Benadryl IV. She will be observed. Patient is been in the ER 2 hours. Her swelling is gotten no worse and it may even be actually a little better on multiple repeat exams. She is having no trouble swallowing or breathing. Treatment Plan: Discharged home. Return if swelling of her lips or tongue is worse. Or any trouble breathing or swallowing. To be placed on prednisone 40 times a day for 3 days. Start tomorrow. Stop her lisinopril. Also will stop the other medication that her proposal review analyst are drawn. Disposition: Discharge Impression: Acute mild tongue swelling secondary to angioneurotic edema This note was generated with [employer] dictation software. It may contain incorrect words, spelling, and punctuation that were not noted in review of the chart prior to signing ED Disposition - Plan for ED Patient: Referrals: Karl Ibarra MD [Primary Care Provider] -
[2019-06-12] MEDS: DiphenhydrAMINE 50 MG/ML Syringe 25 MG IV (18:10)
[2019-06-12] MEDS: Famotidine 20 MG Tablet 40 MG PO (18:10)
[2019-06-12] MEDS: MethylPREDNISolone 125 MG/2 ML Vial IV (18:11)
--- NOTE | 2019-06-12 19:18 | ED.DEP ---
ED Disposition - Plan for ED Patient: Disposition: Home or Assisted Living Instructions: ED Angioedema Prescriptions: Prednisone [Deltasone] 40 mg PO DAILY 3 Days tab Prescription Printed Referrals: Karl Ibarra MD [Primary Care Provider] - 3-5 Days Additional Instructions: Is a 40 mg a day for the next 3 days. Stop your lisinopril. Log your blood pressures twice daily and follow-up with your doctor next week they may have to restart a different blood pressure medication. We will also stop your lung medication either or could have caused the tongue swelling. Return if swelling gets. Any trouble swallowing or breathing.
[2019-06-12 19:37] VITALS: BP 144/58; PULSE 72; RESP 16; O2SAT 93
== END 2019-06-12 19:37 | disposition home or self-care (01) ==
PROVIDERS: Emergency Provider Emergency Medicine; Family Provider Internal Medicine; PCP Internal Medicine
DX: T78.3XXA Angioneurotic edema, initial encounter (principal); I10 Essential (primary) hypertension; J44.9 Chronic obstructive pulmonary disease, unspecified; Z87.01 Personal history of pneumonia (recurrent); Z79.899 Other long term (current) drug therapy
CPT/HCPCS: 96374; 96375; 99283; A4216

== ENCOUNTER 2023-07-13 08:50 | Inpatient (IN) | payer MEDICARE, OTHER, SELFPAY ==
[2023-07-13] VITALS (17 sets, daily range): BP systolic 121–153; BP diastolic 50–59; PULSE 63–88; RESP 12–26; TEMP 36.4–37.2; O2SAT 84–98; BMI 24.5; BMI 24.9
--- NOTE | 2023-07-13 09:49 | RAD_ITS ---
STUDY: X-RAY CHEST REASON FOR EXAM: Female, 88 years old. Dyspnea TECHNIQUE: Single AP portable view of the chest. COMPARISON: March 09, 2019 FINDINGS: There are monitoring and support devices. There are moderate interstitial increased opacities of the lungs. There is 2.3 cm left midlung nodule. There is no demonstrated pleural abnormality. There is moderate cardiac enlargement. Normal mediastinum and rosa elena. Normal visualized pulmonary arteries. Normal visualized aortic arch and descending thoracic aorta. There is demineralization of the osseous structures. Normal visualized ribs, clavicles, and shoulders. There is no demonstrated abnormality of the visualized soft tissue structures of the upper abdomen. RAD/Chest 1 View (Portable) IMPRESSION: Interstitial edema or infiltrates. Left midlung nodule. CT recommended for further evaluation. Electronically Signed: Esa Montenegro MD at 11:09 EST ,
--- NOTE | 2023-07-13 09:50 | EKG12_ITS ---
Test Reason : SOB Blood Pressure : / mmHG Vent. Rate : 071 BPM Atrial Rate : 000 BPM P-R Int : 000 ms QRS Dur : 096 ms QT Int : 426 ms P-R-T Axes : 000 062 -18 degrees QTc Int : 462 ms Atrial fibrillation Nonspecific ST and T wave abnormality Abnormal ECG Confirmed by ARJUN CHAUHAN, DONNA ([id number]), photo editor RENAE LOZOYA ([id number]) on 07/24/2023 9:50:20 AM Referred By: YASMIN Confirmed By:DONNA DÍAZ MD
--- NOTE | 2023-07-13 09:51 | ED.VIS.DYS ---
HPI History of Present Illness Chief Complaint: Shortness of Breath Informant: patient and family Narrative Narrative: 88-year-old female with a history of COPD presenting to the emergency room with the chief complaint of dyspnea. Patient states symptoms began on Saturday evening. She denies any chest pain, dyspnea on exertion, cough or change in cough or fever. She states that the right leg normally has some swelling secondary to an old ankle fracture. No other leg swelling noted. She denies DVT PE risk factors. She does not wear oxygen at home. [facility] Medical History (Updated 07/13/23 @ 15:[address] Deniz Sanchez, ) COPD exacerbation HLD (hyperlipidemia) HTN (hypertension) Home Medications amlodipine 10 mg tablet (Norvasc) 10 mg PO BID HTN 09/28/17 [History Last Taken 07/12/23] calcium citrate 200 mg calcium-vitamin D3 6.25 mcg (250 unit) tablet (Citracal-D3 Petites) 1 ea PO DAILY supplement 09/28/17 [History Last Taken 07/12/23] cholecalciferol (vitamin D3) 25 mcg (1,000 unit) capsule (Vitamin D3) 1,000 unit PO DAILY supplement 09/28/17 [History Last Taken 07/12/23] tqvyatwm-dba-sedqr acid 0.4 mg-lycopene 300 mcg-lutein 250 mcg tablet (Centrum Silver) 1 ea PO DAILY supplement 09/28/17 [History Last Taken 07/12/23] nabumetone 500 mg tablet 500 mg PO BID arthritis 09/28/17 [History Last Taken 07/12/23] pravastatin 20 mg tablet 20 mg PO QHS cholesterol 09/28/17 [History Last Taken 07/12/23] vit C 250 mg-vit E 90 mg-zinc 40 mg-copper 1 ix-jgojiw-tkkxoa capsule (PreserVision AREDS-2) 1 ea PO BID eyes 09/28/17 [History Last Taken 07/12/23] albuterol sulfate 90 mcg/actuation aerosol inhaler 2 puff IH Q4H PRN PRN Sob &/Or Wheezing 03/06/19 [History Last Taken 07/13/23] guaifenesin 1,200 mg tablet, extended release 12 hr 1,200 mg PO BID PRN Congestion 06/12/19 [History Last Taken 07/12/23] bisoprolol fumarate 10 mg tablet 10 mg PO DAILY 07/13/23 [History Last Taken 07/12/23] losartan 100 mg tablet 100 mg PO DAILY 07/13/23 [History Last Taken 07/12/23] terazosin 2 mg capsule 2 mg PO QHS 07/13/23 [History Last Taken 07/12/23] tiotropium 2.5 mcg-olodaterol 2.5 mcg/actuation mist for inhalation ([employer] Respimat) 2 puff inhalation Q24H 07/13/23 [History Last Taken 07/13/23] Allergy/AdvReac Type Severity Reaction Status Date / Time hydroxychloroquine Allergy Other Verified 07/13/23 08:51 [From Plaquenil] umeclidinium Allergy Angioedema Verified 07/13/23 08:51 [From Anoro Ellipta] vilanterol Allergy Angioedema Verified 07/13/23 08:51 [From Anoro Ellipta] Family History (Updated 07/13/23 @ 14:[address] Seth Watt MD) Other Cancer Hypertension Surgical History Status post ORIF of fracture of ankle Social History Smoking Status: Never smoker ROS ROS ED Constitutional Constitutional ED: Denies chills, fever(s) or weight loss Eyes Eyes: Denies change in vision or diplopia ENT ENT ED: Denies ear pain, rhinorrhea or sore throat Cardiovascular Cardiovascular: Denies chest pain, orthopnea, palpitations or racing heartbeat Respiratory/Chest Respiratory/Chest: Reports dyspnea; Denies cough, dyspnea on exertion or orthopnea Gastrointestinal Gastrointestinal: Denies abdominal pain, diarrhea, nausea or vomiting Genitourinary Genitourinary ED: Denies dysuria, hematuria or urinary frequency Musculoskeletal Musculoskeletal: Denies arthralgias or myalgias Integumentary Denies abscess or rash Neurologic Neurologic: Denies headache(s) or weakness Psychiatric Psychiatric: Denies anxiety, depression, suicidal ideation or suicidal thoughts Endocrine Endocrinology: Denies polydipsia, polyphagia or polyuria Allergic/Immunologic Allergic/Immunologic ED: Denies mouth swelling, tongue swelling or urticaria EXAM Physical Exam Const Vital Signs: 07/13/23 08:51 07/13/23 08:53 07/13/23 10:14 Temperature 99 F Temperature Source Temporal Pulse Rate 63 71 Respiratory Rate 26 H 14 Respiratory Effort Respiratory Pattern Blood Pressure 153/58 H 131/50 H Blood Pressure Mean 89 77 Pulse Ox 85 93 91 Oxygen Delivery Method Room Air Room Air Room Air Oxygen Flow Rate (L/min) 2 07/13/23 10:50 07/13/23 10:55 07/13/23 12:00 Temperature 97.7 F L Temperature Source Oral Pulse Rate 69 73 Respiratory Rate 16 16 Respiratory Effort Normal Non-Labored Respiratory Pattern Blood Pressure 133/59 H 132/51 H Blood Pressure Mean 83 78 Pulse Ox 92 87 Oxygen Delivery Method Room Air Room Air Oxygen Flow Rate (L/min) 07/13/23 12:10 07/13/23 12:39 07/13/23 13:00 Temperature 97.7 F L Temperature Source Pulse Rate 70 77 Respiratory Rate 16 12 Respiratory Effort Respiratory Pattern Normal Blood Pressure 130/52 H Blood Pressure Mean 78 Pulse Ox 93 96 Oxygen Delivery Method Nasal Cannula Oxygen Flow Rate (L/min) 2 07/13/23 14:05 Temperature Temperature Source Pulse Rate 71 Respiratory Rate 18 Respiratory Effort Respiratory Pattern Blood Pressure 122/53 H Blood Pressure Mean 76 Pulse Ox 97 Oxygen Delivery Method Nasal Cannula Oxygen Flow Rate (L/min) 2 Positive well nourished and well developed General Appearance ED: well developed HEENT Reports normocephalic, head/scalp atraumatic and moist mucous membranes Eyes PERRL and EOMs intact bilaterally Neck no lymphadenopathy, supple and no JVD Resp normal respiratory effort and clear to auscultation bilaterally Cardio regular rate and regular rhythm Cardio Narrative: 2/6 systolic murmur GI normal to inspection, nondistended, normoactive bowel sounds and non-tender Palpation: soft Back/Spine no CVA tenderness and normal ROM Extremity normal to inspection Extremity Narrative: right ankle edema (chronic per patient) Neuro oriented x3 and CN's II-XII intact bilaterally Sensorium / Orientation: alert Motor Exam: strength 5/5 throughout Psych mental status grossly normal Mood & Affect: Negative for depressed or tearful Skin no rashes or lesions noted and no wounds MDM MDM MDM Narrative Medical decision making narrative: Patient white count is 10.5 hemoglobin of 10. Platelet count of 210. D-dimer is elevated 2.05. Creatinine 0.81. Lactic acid 0.7 with a troponin of 10 TSH 1.55 and a BNP of 427.1. Magnesium 1.8. My independent interpretation of the chest x-ray is left mid lung circular mass/nodular that was not present on her last chest x-ray. There is some probable pulmonary edema noted. The patient's initial EKG was being read as A-fib but when I watch her on the monitor and study the EKG carefully appears to be more of a sinus rhythm. I did repeat this later in her ED course which continues to show a sinus rhythm with a ventricular rate of 69 bpm and frequent PACs. Because of the elevated D-dimer and her hypoxia a CTA of the chest was ordered. This demonstrated bilateral infiltrates/consolidation. No very embolism was noted. Nodule noted in the left lung field. With minimal exertion (sitting on the side of the bed the patient does become hypoxic into the 80s). However if left at rest she is not hypoxic. Because of the infiltrate seen on CT patient received Rocephin and azithromycin after blood cultures. Initial chest x-ray I did not feel was obvious for infiltrate she did not have fever and did not have a white count. She had no change in her cough and her she only chief complaint was dyspnea. I do not believe the patient is septic. I will speak with the hospitalist regarding admission. History & Record Review Discussion w/independent historian: Patient and Family Additional record(s) reviewed:: Prior outpatient record, Prior ED visit and Prior labs Lab Data Attestation: I reviewed the patient's lab results. Labs: Laboratory Results - last 24 hr 07/13/23 07/13/23 09:30 12:45 WBC 10.5 RBC 3.38 L Hgb 10.0 L Hct 30.2 L MCV 89.3 MCH 29.6 MCHC 33.1 RDW Std Deviation 50.4 H RDW Coeff of Nina 15.5 H Plt Count 210 MPV 10.9 Immature Gran % (Auto) 0.600 Neut % (Auto) 87.5 H Lymph % (Auto) 5.7 L [place] % (Auto) 4.7 Eos % (Auto) 0.9 Baso % (Auto) 0.6 Absolute Neuts (auto) 9.2 H Absolute Lymphs (auto) 0.60 L Nucleated RBC % 0 PT 12.9 INR 1.0 APTT 29.3 D-Dimer Quant (PE/DVT) 2.05 H* Sodium 125 L Potassium 3.9 Chloride 93 L Carbon Dioxide 25.0 Anion Gap 7 BUN 11 Creatinine 0.81 Estim Creat Clear Calc 42.25 Est GFR (MDRD) Af Amer 86 Est GFR (MDRD) Non-Af 71 BUN/Creatinine Ratio 13.6 Glucose 143 H Lactic Acid 0.7 Calcium 8.6 Magnesium 1.8 Troponin I High Sens 10 B-Natriuretic Peptide 427.1 H TSH 1.55 Radiography Diagnostic Testing: Clinical Impression(s) from Imaging Studies Chest X-Ray 07/13/23 09:49 IMPRESSION: Interstitial edema or infiltrates. Left midlung nodule. CT recommended for further evaluation. Electronically Signed: Esa Montenegro MD at 11:09 EST , Chest CTA 07/13/23 10:53 IMPRESSION: CTA chest examination, without a demonstrated pulmonary embolism or arterial dissection. Interstitial infiltrates or fibrosis. Nodular component in the left midlung. Short-term follow-up or bronchoscopy recommended for further evaluation. Bilateral bronchiectasis and consolidation. Bilateral pleural effusions. Electronically Signed: Esa Montenegro MD at 12:11 EST , EKG Initial EKG: Attestation: I personally reviewed and interpreted this EKG as follows: Comments: Sinus rhythm with PACs. No definitive features of ACS. Ventricular rate of 71. Follow-up EKG: Attestation: I personally reviewed and interpreted this EKG as follows: Comments: Follow-up EKG demonstrates a sinus rhythm with a ventricular rate of 69 bpm with premature atrial complexes Differential Diagnosis Chest pain/SOB: pulmonary embolism, ACS, pneumothorax, pneumonia, aortic dissection, CHF and COPD Management Discussion w/another healthcare provider: Hospitalist Discharge Plan Dx/Rx/DC Orders Clinical Impression: Hyponatremia, Acute hypoxemic respiratory failure, Bilateral pneumonia, Lung nodule Disposition [facility] Discharge Date/Time: 07/13/23 15:21
[2023-07-13 10:41] LABS: Absolute Neutrophil Count 9.2 X10^3/uL (2.0-7.7); Basophil# 0.06 X10^3/uL; Basophil% 0.6 % (0-1); Eosinophil# 0.09 X10^3/uL; Eosinophils% 0.9 % (0-5); Hematocrit 30.2 % (37-47); Lymphocyte % 5.7 % (19-41); Mean Corp Hgb Conc 33.1 g/dL (32-36); Mean Corpuscular Hgb 29.6 pg (27.0-32.0); Mean Corpuscular Volume 89.3 fL (81-99); Mean Platelet Vol. 10.9 fl (6.2-12.0); Monocyte# 0.49 X10^3/uL; Monocyte% 4.7 % (0-10); NRBC Flagged by Analyzer 0 % (0-5); Neutrophil # 9.22 X10^3/uL (2.7-7.7); Neutrophil % 87.5 % (47-70); POSITIVE DIFFERENTIAL YES; Platelet Count 210 K/mm3 (150-450); RBC Distribution Width CV 15.5 % (11.6-14.6); RBC Distribution Width SD 50.4 fl (35.1-43.9); Red Blood Count 3.38 M/mm3 (4.2-5.4); White Blood Count 10.5 K/mm3 (4.4-11.0)
[2023-07-13 10:42] LABS: D-Dimer Quantitative (DVT/PE) 2.05 FEU/ug/m (0.27-0.49)
[2023-07-13 10:43] LABS: Differential Indicated SCAN CRITERIA MET
[2023-07-13 10:47] LABS: Anion Gap 7 (5-15); BUN 11 mg/dL (7-18); BUN/Creat Ratio 13.6 RATIO (10-20); Calcium,Total 8.6 mg/dL (8.5-10.1); Chloride 93 mmol/L (98-107); Creatinine, Serum 0.81 mg/dL (0.55-1.02); EST Glomerular Filtration Rate 71 mL/min (>60); Est Glom Filt Rate - Afr Amer 86 mL/min (>60); Estimated Creatinine Clearance 42.25 ml/min; Glucose 143 mg/dL (74-106); Potassium 3.9 mmol/L (3.5-5.1); Sodium Level 125 mmol/L (136-145); Troponin-I HS 10 pg/mL (3.0-54.0)
--- NOTE | 2023-07-13 10:53 | CT_ITS ---
STUDY: CTA CHEST REASON FOR EXAM: Female, 88 years old. Pulmonary embolism -- elevated d dimer, dyspnea, left chest mass RADIATION DOSAGE (If Supplied By Facility): CTDIvol = ( 6.08 ) mGy, DLP = ( 223.68 ) mGycm TECHNIQUE: The examination was performed with the intravenous administration of IV 100mL Isovue-370. Post-processing of the angiographic images was performed, with multiplanar reformation and 3D reconstruction. Individualized dose optimization techniques were used for this CT. COMPARISON: Chest x-ray July 12, 2023. Chest CT March 06, 2019 FINDINGS: Normal enhancement of the main pulmonary artery and right and left pulmonary arteries. Normal enhancement of the bilateral peripheral pulmonary arteries. There is no demonstrated pulmonary embolism. There is atherosclerotic calcification of the aortic arch with tortuosity. There is no demonstrated aortic dissection. There are calcifications of the coronary arteries. Normal mediastinum. Normal hilar regions. Normal visualized trachea and bronchi. The lungs are well expanded. There are mild to moderate reticulonodular interstitial increased opacities of the lungs. There is 1.1 cm nodular component in the left midlung. There is right middle lobe and left lingular bronchiectasis, collapse, and airspace consolidation. There is lower lung atelectasis. There are small pleural effusions. Normal chest wall structures. There is degenerative change of the spine. There is compression fracture of the lumbar spine. There is a healed left anterior fourth and fifth rib fractures. Normal visualized upper abdomen. CT/CTA Chest W/WO Contrast IMPRESSION: CTA chest examination, without a demonstrated pulmonary embolism or arterial dissection. Interstitial infiltrates or fibrosis. Nodular component in the left midlung. Short-term follow-up or bronchoscopy recommended for further evaluation. Bilateral bronchiectasis and consolidation. Bilateral pleural effusions. Electronically Signed: Esa Montenegro MD at 12:11 [facility] ,
--- NOTE | 2023-07-13 11:58 | EKG12_ITS ---
Test Reason : REPEAT Blood Pressure : / mmHG Vent. Rate : 069 BPM Atrial Rate : 069 BPM P-R Int : 130 ms QRS Dur : 096 ms QT Int : 436 ms P-R-T Axes : 084 062 039 degrees QTc Int : 467 ms Sinus rhythm with Premature atrial complexes Nonspecific ST abnormality Abnormal ECG Confirmed by ARJUN CHAUHAN, DONNA ([id number]), editor magazine RENAE LOZOYA ([id number]) on 07/24/2023 9:50:54 AM Referred By: Confirmed By:DONNA DÍAZ MD
[2023-07-13 12:13] LABS: Partial Thromboplast Time 29.3 Seconds (24.1-36.2); Prothrombin Time (Protime)PT. 12.9 SECONDS (11.7-14.9)
[2023-07-13 12:23] LABS: BNP,B-Type NATRIURETIC PEPTIDE 427.1 pg/mL (0-100)
[2023-07-13 12:34] LABS: Magnesium 1.8 mg/dL (1.6-2.6); Thyroid Stim Hormone (TSH) 1.55 uIU/mL (0.358-3.74)
[2023-07-13] MEDS: Ipratropium/Albuterol Sulfate 3 ML AMPUL.NEB INHALATION ×4 (12:38→22:42)
[2023-07-13] MEDS: Ceftriaxone 1 GM/50 ML BAG IV (12:52)
[2023-07-13] MEDS: Azithromycin 500 MG in Dextrose 5%-Water (250mL Bag) 250 ML 250 MG IV (12:58)
[2023-07-13 13:52] LABS: Lactic Acid 0.7 mmol/L (0.4-1.9)
--- NOTE | 2023-07-13 14:15 | HP.PCM.HOS_ITS ---
HPI - General General Date of Admission: 07/13/23 HPI Narrative PATRICA AGUIAR, is a 88 F who presents to the hospital with shortness of breath that started on and is slowly gotten worse. She presents today secondary to the significant shortness of breath she was feeling at home. When she presented she was 85% on room air and was placed on 2 L nasal cannula, she does not normally wear oxygen at home. Does have a history of COPD despite not being a smoker, she states that she has been exposed to secondhand smoke her entire life and that is where her doctors think she developed her COPD. She is on an albuterol inhaler at home. No wheezing in the ED but there was signs of c onsolidation on the right side with 1.1 cm left lobe mass that can be followed up as an outpatient. She was given a dose of azithromycin and Rocephin but since there is no significant wheezing on exam despite good air movement no steroids were given but she was given a breathing treatment. A CTA was obtained secondary to an elevated D-dimer that demonstrated the left lobe mass and right- sided consolidation. [facility] Medical History (Updated 07/13/23 @ 14:[address] Seth Watt MD) COPD exacerbation HLD (hyperlipidemia) HTN (hypertension) Home Medications amlodipine 10 mg tablet (Norvasc) 10 mg PO BID HTN 09/28/17 [History Last Taken 07/12/23] calcium citrate 200 mg calcium-vitamin D3 6.25 mcg (250 unit) tablet (Citracal- D3 Petites) 1 ea PO DAILY supplement 09/28/17 [History Last Taken 07/12/23] cholecalciferol (vitamin D3) 25 mcg (1,000 unit) capsule (Vitamin D3) 1,000 unit PO DAILY supplement 09/28/17 [History Last Taken 07/12/23] ulkppxla-vgm-fsxst acid 0.4 mg-lycopene 300 mcg-lutein 250 mcg tablet (Centrum Silver) 1 ea PO DAILY supplement 09/28/17 [History Last Taken 07/12/23] nabumetone 500 mg tablet 500 mg PO BID arthritis 09/28/17 [History Last Taken 07/12/23] pravastatin 20 mg tablet 20 mg PO QHS cholesterol 09/28/17 [History Last Taken 07/12/23] vit C 250 mg-vit E 90 mg-zinc 40 mg-copper 1 [id number]-zqudmr capsule (PreserVision AREDS-2) 1 ea PO BID eyes 09/28/17 [History Last Taken 07/12/23] albuterol sulfate 90 mcg/actuation aerosol inhaler 2 puff IH Q4H PRN PRN Sob &/Or Wheezing 03/06/19 [History Last Taken 07/13/23] guaifenesin 1,200 mg tablet, extended release 12 hr 1,200 mg PO BID PRN Congestion 06/12/19 [History Last Taken 07/12/23] bisoprolol fumarate 10 mg tablet 10 mg PO DAILY 07/13/23 [History Last Taken 07/12/23] losartan 100 mg tablet 100 mg PO DAILY 07/13/23 [History Last Taken 07/12/23] terazosin 2 mg capsule 2 mg PO QHS 07/13/23 [History Last Taken 07/12/23] tiotropium 2.5 mcg-olodaterol 2.5 mcg/actuation mist for inhalation ([employer] Respimat) 2 puff inhalation Q24H 07/13/23 [History Last Taken 07/13/23] Allergy/AdvReac Type Severity Reaction Status Date / Time hydroxychloroquine Allergy Other Verified 07/13/23 08:51 [From Plaquenil] umeclidinium Allergy Angioedema Verified 07/13/23 08:51 [From Anoro Ellipta] vilanterol Allergy Angioedema Verified 07/13/23 08:51 [From Anoro Ellipta] Family History (Updated 07/13/23 @ 14:[address] Seth Watt MD) Other Cancer Hypertension Surgical History (Updated 07/13/23 @ 14:[address] Seth Watt MD) Status post ORIF of fracture of ankle Social History Smoking Status: Never smoker ROS Constitutional Constitutional: Denies chills, fatigue, fever(s) or malaise Eyes Eyes: Denies blurry vision ENT HEENT: Denies headache(s) or nasal discharge Cardiovascular Cardiovascular: Denies chest pain, dyspnea on exertion or syncope Respiratory/Chest Respiratory/Chest: Reports cough, shortness of breath at rest and shortness of breath with exertion Gastrointestinal Gastrointestinal: Denies constipation, diarrhea, nausea or vomiting Genitourinary Genitourinary: Denies dysuria Neurologic Neurologic: Denies focal weakness, numbness or tremor(s) Psychiatric Psychiatric: Denies anxiety or depression Vital Signs Vital Signs Vital Signs: 07/13/23 08:51 07/13/23 08:53 07/13/23 10:14 Temperature 99 F Temperature Source Temporal Pulse Rate 63 71 Respiratory Rate 26 H 14 Respiratory Effort Respiratory Pattern Blood Pressure 153/58 H 131/50 H Blood Pressure Mean 89 77 Pulse Ox 85 93 91 Oxygen Delivery Method Room Air Room Air Room Air Oxygen Flow Rate (L/min) 2 07/13/23 10:50 07/13/23 10:55 07/13/23 12:00 Temperature 97.7 F L Temperature Source Oral Pulse Rate 69 73 Respiratory Rate 16 16 Respiratory Effort Normal Non-Labored Respiratory Pattern Blood Pressure 133/59 H 132/51 H Blood Pressure Mean 83 78 Pulse Ox 92 87 Oxygen Delivery Method Room Air Room Air Oxygen Flow Rate (L/min) 07/13/23 12:10 07/13/23 12:39 07/13/23 13:00 Temperature 97.7 F L Temperature Source Pulse Rate 70 77 Respiratory Rate 16 12 Respiratory Effort Respiratory Pattern Normal Blood Pressure 130/52 H Blood Pressure Mean 78 Pulse Ox 93 96 Oxygen Delivery Method Nasal Cannula Oxygen Flow Rate (L/min) 2 07/13/23 14:05 Temperature Temperature Source Pulse Rate 71 Respiratory Rate 18 Respiratory Effort Respiratory Pattern Blood Pressure 122/53 H Blood Pressure Mean 76 Pulse Ox 97 Oxygen Delivery Method Nasal Cannula Oxygen Flow Rate (L/min) 2 Weight Weight: 142 lb 10.225 oz Body Mass Index (BMI) 24.5 Physical Exam Narrative General: Alert, Oriented x3, Cooperative, No apparent distress HEENT: Atraumatic, PERRLA, EOMI, Normocephalic Oral: Moist Mucosa Neck: Supple, No JVD Lungs: Diminished, Normal air movement, No rhonchi, No wheeze, No rales Cardiovascular: Regular rate, Regular Rhythm, Normal S1, Normal S2, No murmurs Abdomen: Soft, Non Tender, Non-Distended, No Hepato-splenomegaly Extremities: No edema, Capillary Refill Less than 3 Seconds Skin: No rashes, No breakdown Musculoskeletal: No Tenderness to Palpation of Joints or Extremities Neurological: Cranial nerves II-XII grossly intact, Motor Exam 5/5 strength throughout, Sensory exam intact to light touch and pain Psych/Mental Status: Normal Affect, Appropriate Results Lab / Micro Data 07/13/23 09:30 07/13/23 09:30 Labs: Laboratory Results - last 24 hr 07/13/23 09:30: WBC 10.5, RBC 3.38 L, Hgb 10.0 L, Hct 30.2 L, MCV 89.3, MCH 29.6, MCHC 33.1, RDW Std Deviation 50.4 H, RDW Coeff of Nina 15.5 H, Plt Count 210, MPV 10.9, Immature Gran % (Auto) 0.600, Neut % (Auto) 87.5 H, Lymph % (Auto) 5.7 L, [place] % (Auto) 4.7, Eos % (Auto) 0.9, Baso % (Auto) 0.6, Absolute Neuts (auto) 9.2 H, Absolute Lymphs (auto) 0.60 L, Nucleated RBC % 0, PT 12.9, INR 1.0, APTT 29.3, D-Dimer Quant (PE/DVT) 2.05 H*, Sodium 125 L, Potassium 3.9, Chloride 93 L, Carbon Dioxide 25.0, Anion Gap 7, BUN 11, Creatinine 0.81, Estim Creat Clear Calc 42.25, Est GFR (MDRD) Af Amer 86, Est GFR (MDRD) Non-Af 71, BUN/Creatinine Ratio 13.6, Glucose 143 H, Calcium 8.6, Magnesium 1.8, Troponin I High Sens 10, B-Natriuretic Peptide 427.1 H, TSH 1.55 07/13/23 12:45: Lactic Acid 0.7 Radiology Impression Chest X-Ray 07/13/23 09:49 IMPRESSION: Interstitial edema or infiltrates. Left midlung nodule. CT recommended for further evaluation. Electronically Signed: Esa Montenegro MD at 11:09 EST , Chest CTA 07/13/23 10:53 IMPRESSION: CTA chest examination, without a demonstrated pulmonary embolism or arterial dissection. Interstitial infiltrates or fibrosis. Nodular component in the left midlung. Short-term follow-up or bronchoscopy recommended for further evaluation. Bilateral bronchiectasis and consolidation. Bilateral pleural effusions. Electronically Signed: Esa Montenegro MD at 12:11 EST , Assessment & Plan Assessment/Plan (1) Community acquired pneumonia: PLAN: Plan 1. Community-acquired pneumonia with hypoxia in the setting of COPD/left lobe 1 cm mass ? She will need outpatient follow-up for the 1 cm mass on her left lung ? Continue with azithromycin and Rocephin ? We will check a respiratory panel as well as COVID ? Continue with O2 therapy, wean as able ? Continue with DuoNebs 2. HTN/HLD ? Blood pressures are stable ? Continue with her blood pressure medications, will monitor and make adjustments as necessary ? Continue with her statin DVT: Lovenox Charges/Coding Visit Charges Inpatient E&M: 78958 Init Hosp L2
[2023-07-13] MEDS: Etodolac 200 MG Capsule PO (17:31)
[2023-07-13] MEDS: 0.9% Saline Lock 10 ML Syringe IV (21:09)
[2023-07-13] MEDS: Doxazosin 1 MG Tablet 2 MG PO (21:09)
[2023-07-13] MEDS: Pravastatin 20 MG Tablet PO (21:09)
[2023-07-13] MEDS: amLODIPine 10 MG Tablet PO (21:09)
[2023-07-14] VITALS (13 sets, daily range): BP systolic 101–141; BP diastolic 44–58; PULSE 57–83; RESP 16–20; TEMP 36.2–36.7; O2SAT 89–97
[2023-07-14 05:36] LABS: Absolute Lymphocyte Count 0.69 X10^3/uL (0.83-4.51); Absolute Neutrophil Count 7.2 X10^3/uL (2.0-7.7); Basophil# 0.03 X10^3/uL; Basophil% 0.3 % (0-1); Eosinophil# 0.11 X10^3/uL; Eosinophils% 1.3 % (0-5); Hematocrit 25.7 % (37-47); Hemoglobin 8.7 g/dL (12.0-15.0); Lymphocyte # 0.69 X10^3/ul (0.83-4.51); Lymphocyte % 7.8 % (19-41); Mean Corp Hgb Conc 33.9 g/dL (32-36); Mean Corpuscular Hgb 30.2 pg (27.0-32.0); Mean Corpuscular Volume 89.2 fL (81-99); Mean Platelet Vol. 10.4 fl (6.2-12.0); Monocyte# 0.69 X10^3/uL; Monocyte% 7.8 % (0-10); NRBC Flagged by Analyzer 0 % (0-5); Neutrophil # 7.23 X10^3/uL (2.7-7.7); Neutrophil % 82.3 % (47-70); Platelet Count 187 K/mm3 (150-450); RBC Distribution Width CV 15.6 % (11.6-14.6); Red Blood Count 2.88 M/mm3 (4.2-5.4); White Blood Count 8.8 K/mm3 (4.4-11.0)
[2023-07-14 05:58] LABS: Anion Gap 7 (5-15); BUN 9 mg/dL (7-18); Calcium,Total 8.1 mg/dL (8.5-10.1); Chloride 95 mmol/L (98-107); Creatinine, Serum 0.64 mg/dL (0.55-1.02); EST Glomerular Filtration Rate 93 mL/min (>60); Est Glom Filt Rate - Afr Amer 112 mL/min (>60); Estimated Creatinine Clearance 34.23 ml/min; Glucose 101 mg/dL (74-106); Potassium 3.8 mmol/L (3.5-5.1); Sodium Level 128 mmol/L (136-145)
[2023-07-14] MEDS: Ipratropium/Albuterol Sulfate 3 ML AMPUL.NEB INHALATION ×5 (07:05→22:36)
--- NOTE | 2023-07-14 07:18 | PCM.PN.HOSP ---
Reason for Visit Reason for Visit: Diagnoses Pneumonia, unspecified organism (07/13/23) Subjective Subjective Still not back to baseline but feeling better than she did yesterday, slowly improving, does not feel like she is overly swollen Objective Data Objective Data Vital Signs: Vital Signs Temp Pulse Resp BP Pulse Ox O2 Del Method O2 Flow Rate 97.4 F L 74 20 H 141/58 H 96 Nasal Cannula 2 07/14/23 02:10 07/14/23 07:05 07/14/23 07:05 07/14/23 02:10 07/14/23 07:05 07/14/23 07:05 07/14/23 07:05 Oxygen Flow Rate (L/min) 2 Oxygen Delivery Method Nasal Cannula Weight: 65.771 kg Body Mass Index (BMI) 24.9 Intake & Output: Intake and Output for Last 24 Hours 07/12/23 07/13/23 07/14/23 23:59 23:59 23:59 Intake Total 905 / 905 Balance 905 / 905 Lab / Micro Data 07/14/23 04:25 07/14/23 04:25 Labs: Laboratory Results - last 24 hr 07/13/23 09:30: WBC 10.5, RBC 3.38 L, Hgb 10.0 L, Hct 30.2 L, MCV 89.3, MCH 29.6, MCHC 33.1, RDW Std Deviation 50.4 H, RDW Coeff of Nina 15.5 H, Plt Count 210, MPV 10.9, Immature Gran % (Auto) 0.600, Neut % (Auto) 87.5 H, Lymph % (Auto) 5.7 L, [place] % (Auto) 4.7, Eos % (Auto) 0.9, Baso % (Auto) 0.6, Absolute Neuts (auto) 9.2 H, Absolute Lymphs (auto) 0.60 L, Nucleated RBC % 0, PT 12.9, INR 1.0, APTT 29.3, D-Dimer Quant (PE/DVT) 2.05 H*, Sodium 125 L, Potassium 3.9, Chloride 93 L, Carbon Dioxide 25.0, Anion Gap 7, BUN 11, Creatinine 0.81, Estim Creat Clear Calc 42.25, Est GFR (MDRD) Af Amer 86, Est GFR (MDRD) Non-Af 71, BUN/Creatinine Ratio 13.6, Glucose 143 H, Calcium 8.6, Magnesium 1.8, Troponin I High Sens 10, B-Natriuretic Peptide 427.1 H, TSH 1.55 07/13/23 12:45: Lactic Acid 0.7 07/14/23 04:25: WBC 8.8, RBC 2.88 L, Hgb 8.7 L, Hct 25.7 L, MCV 89.2, MCH 30.2, MCHC 33.9, RDW Std Deviation 51.0 H, RDW Coeff of Nina 15.6 H, Plt Count 187, MPV 10.4, Immature Gran % (Auto) 0.500, Neut % (Auto) 82.3 H, Lymph % (Auto) 7.8 L, [place] % (Auto) 7.8, Eos % (Auto) 1.3, Baso % (Auto) 0.3, Absolute Neuts (auto) 7.2, Absolute Lymphs (auto) 0.69 L, Nucleated RBC % 0, Sodium 128 L, Potassium 3.8, Chloride 95 L, Carbon Dioxide 26.0, Anion Gap 7, BUN 9, Creatinine 0.64, Estim Creat Clear Calc 34.23, Est GFR (MDRD) Af Amer 112, Est GFR (MDRD) Non-Af 93, BUN/Creatinine Ratio 14.0, Glucose 101, Calcium 8.1 L Micro: Microbiology 07/13/23 16:22 Mucosa - Nose Respiratory Panel (PCR) - Final 07/13/23 15:50 Nasal Secretion SARS-CoV-2 Antigen (Rapid) - Final Radiography Diagnostic Testing: Radiology Impression Chest X-Ray 07/13/23 09:49 IMPRESSION: Interstitial edema or infiltrates. Left midlung nodule. CT recommended for further evaluation. Electronically Signed: Esa Montenegro MD at 11:09 EST , Chest CTA 07/13/23 10:53 IMPRESSION: CTA chest examination, without a demonstrated pulmonary embolism or arterial dissection. Interstitial infiltrates or fibrosis. Nodular component in the left midlung. Short-term follow-up or bronchoscopy recommended for further evaluation. Bilateral bronchiectasis and consolidation. Bilateral pleural effusions. Electronically Signed: Esa Montenegro MD at 12:11 EST , Physical Exam Narrative General: Alert, oriented, no apparent distress HEENT: Atraumatic, normocephalic Eyes: Anicteric, normal conjunctiva, extraocular movements grossly intact Neck: Supple Respiratory: Diminished throughout, normal respiratory effort Cardiovascular: Regular rate GI: Soft, nontender, nondistended Extremities: Trace peripheral edema Musculoskeletal: Moving all extremities Neuro: No overt focal neurological deficits Skin: No rashes appreciated Psych: Cooperative Assessment & Plan Assessment/Plan (1) Community acquired pneumonia: PLAN: Plan #Community-acquired pneumonia with hypoxia in the setting of COPD/left lobe 1 cm mass ? She will need outpatient follow-up for the 1 cm mass on her left lung ? Continue with azithromycin and Rocephin ? We will check a respiratory panel as well as COVID ? Continue with O2 therapy, wean as able ? Continue with DuoNebs -07/14: CTA with no PE. Patient with interstitial infiltrates versus fibrosis. Respiratory and COVID panel negative, doing well on 2 L O2, continue Rocephin and azithromycin and DuoNebs #Chronic hyponatremia -Unclear etiology but patient remains low all the way back to 2011, 128 today which is similar to previous #Chronic normocytic anemia -Down slightly today compared to yesterday however no active blood loss noted, continue to monitor #HTN/HLD ? Blood pressures are stable ? Continue with her blood pressure medications, will monitor and make adjustments as necessary ? Continue with her statin -07/14: Continue present management DVT: Lovenox Time spent in the patient's overall evaluation,decision-making process, review of diagnostic data, adjustment of management, discussion with other providers, nursing nursing and ancillary staff involved in patient's care documentation, 35 minutes Charges/Coding Visit Charges Inpatient E&M: 44328 Subs Hosp L2
[2023-07-14] MEDS: amLODIPine 10 MG Tablet PO ×2 (07:32→21:31)
[2023-07-14] MEDS: Etodolac 200 MG Capsule PO ×2 (07:32→17:06)
[2023-07-14] MEDS: Bisoprolol Fumarate 5 MG Tablet 10 MG PO (07:32)
[2023-07-14] MEDS: Losartan Potassium 100 MG Tablet PO (07:33)
[2023-07-14] MEDS: Enoxaparin 40 MG/0.4 ML Syringe SC (07:33)
[2023-07-14] MEDS: Azithromycin 500 MG in Dextrose 5%-Water (250mL Bag) 250 ML 250 MG IV (09:21)
[2023-07-14] MEDS: Sodium Chloride 0.65% 1 SPRAY SPRAY.BTL 2 SPRAY NASAL (09:42)
[2023-07-14] MEDS: Ceftriaxone 1 GM/50 ML BAG IV (10:37)
[2023-07-14] MEDS: Doxazosin 1 MG Tablet 2 MG PO (21:31)
[2023-07-14] MEDS: Pravastatin 20 MG Tablet PO (21:31)
[2023-07-15] VITALS (9 sets, daily range): BP systolic 121–127; BP diastolic 49–57; PULSE 70–84; RESP 16–18; TEMP 36.3–36.8; O2SAT 93–97; BMI 24.9
[2023-07-15] MEDS: 0.9% Saline Lock 10 ML Syringe IV ×3 (03:50→16:02)
[2023-07-15 05:22] LABS: Absolute Lymphocyte Count 0.69 X10^3/uL (0.83-4.51); Absolute Neutrophil Count 6.1 X10^3/uL (2.0-7.7); Basophil# 0.05 X10^3/uL; Basophil% 0.6 % (0-1); Eosinophil# 0.19 X10^3/uL; Eosinophils% 2.4 % (0-5); Hematocrit 27.6 % (37-47); Hemoglobin 9.1 g/dL (12.0-15.0); Lymphocyte # 0.69 X10^3/ul (0.83-4.51); Lymphocyte % 8.9 % (19-41); Mean Corpuscular Hgb 29.5 pg (27.0-32.0); Mean Corpuscular Volume 89.6 fL (81-99); Mean Platelet Vol. 10.5 fl (6.2-12.0); Monocyte# 0.74 X10^3/uL; Monocyte% 9.5 % (0-10); NRBC Flagged by Analyzer 0 % (0-5); Neutrophil # 6.05 X10^3/uL (2.7-7.7); Platelet Count 194 K/mm3 (150-450); RBC Distribution Width CV 15.5 % (11.6-14.6); RBC Distribution Width SD 50.7 fl (35.1-43.9); Red Blood Count 3.08 M/mm3 (4.2-5.4); White Blood Count 7.8 K/mm3 (4.4-11.0)
[2023-07-15 05:47] LABS: Anion Gap 7 (5-15); BUN 9 mg/dL (7-18); BUN/Creat Ratio 14.1 RATIO (10-20); Calcium,Total 8.1 mg/dL (8.5-10.1); Chloride 92 mmol/L (98-107); Creatinine, Serum 0.64 mg/dL (0.55-1.02); EST Glomerular Filtration Rate 94 mL/min (>60); Est Glom Filt Rate - Afr Amer 114 mL/min (>60); Estimated Creatinine Clearance 34.23 ml/min; Glucose 97 mg/dL (74-106); Sodium Level 125 mmol/L (136-145)
[2023-07-15] MEDS: Etodolac 200 MG Capsule PO ×2 (07:32→16:02)
[2023-07-15] MEDS: Losartan Potassium 100 MG Tablet PO (07:32)
[2023-07-15] MEDS: Enoxaparin 40 MG/0.4 ML Syringe SC (07:32)
[2023-07-15] MEDS: Bisoprolol Fumarate 5 MG Tablet 10 MG PO (07:32)
[2023-07-15] MEDS: amLODIPine 10 MG Tablet PO ×2 (07:32→19:50)
[2023-07-15] MEDS: Ipratropium/Albuterol Sulfate 3 ML AMPUL.NEB INHALATION ×4 (07:44→20:27)
[2023-07-15] MEDS: Ceftriaxone 1 GM/50 ML BAG IV (09:42)
--- NOTE | 2023-07-15 09:59 | ECHOD_ITS ---
Reason For Study: DYSPNEA/SOB Procedure This was a 2D Doppler, Color Flow transthoracic echocardiogram. Exam performed portable in patient room. Left Ventricle Normal left ventricle. The estimated ejection fraction is 60-65 %. Right Ventricle Normal right ventricle. Normal systolic function. Atria The left atrium is mildly enlarged. Normal right atrium. Mitral Valve There is mild mitral annular calcification. Mild (1+) mitral valve insufficiency. Tricuspid Valve Normal tricuspid valve. Moderate (2+) tricuspid valve insufficiency. Aortic Valve Aortic valve area Aortic valve area 1.4 cm?? aortic maximal pressure gradient 19.3 mmHg aortic mean pressure gradient 10.6 mm medical . Mild to moderate aortic stenosis. Mild (1+) aortic valve insufficiency. Pulmonic Valve The pulmonic valve is not well visualized. Great Vessels Normal aortic root. Pericardium/Pleural No pericardial effusion. MMode/2D Measurements & Calculations LVIDd: 5.1 cm IVSd: 0.87 cm LVOT diam: 2.0 cm LVIDs: 3.4 cm LVPWd: 0.84 cm LVOT area: 3.0 cm2 RVDd: 3.4 cm FS: 33.1 % Ao root diam: 3.3 cm LAV(MOD-bp): 47.4 ml LVAd ap4: 27.6 cm2 LAV(MOD-bp) Indexed: 27.8 ml/m2 LVLd ap4: 7.6 cm LAV(MOD-sp2): 46.4 ml EDV(MOD-sp4): 82.1 ml LAV(MOD-sp4): 47.1 ml EDV(sp4-el): 84.8 ml LVAs ap4: 14.8 cm2 LVLs ap4: 6.3 cm ESV(MOD-sp4): 29.8 ml ESV(sp4-el): 29.3 ml EF(MOD-sp4): 63.7 % EF(sp4-el): 65.5 % SV(MOD-sp4): 52.3 ml SV(sp4-el): 55.5 ml LA A4 area: 18.4 cm2 LA dimension(2D): 3.6 cm RA A4 area: 16.3 cm2 Time Measurements MV dec time: 0.20 sec Doppler Measurements & Calculations MV E max akbar: 139.8 cm/sec Lat Peak E' Akbar: 7.1 cm/sec Med Peak E' Akbar: 4.5 cm/sec MV A max akbar: 62.4 cm/sec E/E' lat: 19.7 E/E' med: 30.9 MV E/A: 2.2 Ao V2 max: 218.8 cm/sec LV V1 max: 101.0 cm/sec SV(LVOT): 73.9 ml Ao max P.3 mmHg LV V1 max P.1 mmHg Ao V2 mean: 150.8 cm/sec LV V1 mean P.1 mmHg Ao mean P.6 mmHg LV V1 mean: 67.8 cm/sec Ao V2 VTI: 53.3 cm LV V1 VTI: 24.5 cm AV (velocity ratio): 0.46 LIZZY(I,D): 1.4 cm2 LIZZY(V,D): 1.4 cm2 PA V2 max: 101.6 cm/sec TR max akbar: 341.4 cm/sec TR max P.6 mmHg ECHO/Echo Complete Interpretation Summary The estimated ejection fraction is 60-65 %. Mild calcific aortic valve stenosis. Aortic valve area Aortic valve area 1.4 cm??. Aortic maximal pressure gradient 19.3 mmHg. Aortic mean pressure gradient 10.6 mmhg No prior echo to compare Ordering Physician: Jaimie Dela Cruz Referring Physician: SHELDON SWANSON Performed By: Zenaida Nelson RDCS
--- NOTE | 2023-07-15 09:59 | PN.HOSP_ITS ---
Reason for Visit Reason for Visit: Diagnoses Pneumonia, unspecified organism (07/13/23) Subjective Subjective Patient still short of breath and feels like sometimes she will suddenly feel like it is hard to breathe Objective Data Objective Data Vital Signs: Vital Signs Temp Pulse Resp BP Pulse Ox O2 Del Method O2 Flow Rate 97.3 F L 80 16 121/57 H 97 Room Air 2 07/15/23 08:41 07/15/23 08:41 07/15/23 08:41 07/15/23 08:41 07/15/23 08:41 07/15/23 08:41 07/15/23 08:41 Oxygen Flow Rate (L/min) 2 Oxygen Delivery Method Room Air Weight: 65.9 kg Body Mass Index (BMI) 24.9 Intake & Output: Intake and Output for Last 24 Hours 07/13/23 07/14/23 07/15/23 23:59 23:59 23:59 Intake Total 905 / 905 1205 / 1205 200 / 200 Balance 905 / 905 1205 / 1205 200 / 200 Lab / Micro Data 07/15/23 04:31 07/15/23 04:31 Labs: Laboratory Results - last 24 hr 07/15/23 04:31: WBC 7.8, RBC 3.08 L, Hgb 9.1 L, Hct 27.6 L, MCV 89.6, MCH 29.5, MCHC 33.0, RDW Std Deviation 50.7 H, RDW Coeff of Nina 15.5 H, Plt Count 194, MPV 10.5, Immature Gran % (Auto) 0.600, Neut % (Auto) 78.0 H, Lymph % (Auto) 8.9 L, [place] % (Auto) 9.5, Eos % (Auto) 2.4, Baso % (Auto) 0.6, Absolute Neuts (auto) 6.1, Absolute Lymphs (auto) 0.69 L, Nucleated RBC % 0, Sodium 125 L, Potassium 4.0, Chloride 92 L, Carbon Dioxide 26.0, Anion Gap 7, BUN 9, Creatinine 0.64, Estim Creat Clear Calc 34.23, Est GFR (MDRD) Af Amer 114, Est GFR (MDRD) Non-Af 94, BUN/Creatinine Ratio 14.1, Glucose 97, Calcium 8.1 L Micro: Microbiology 07/13/23 16:22 Mucosa - Nose Respiratory Panel (PCR) - Final 07/13/23 15:50 Nasal Secretion SARS-CoV-2 Antigen (Rapid) - Final Physical Exam Narrative General: Alert, oriented, no apparent distress HEENT: Atraumatic, normocephalic Eyes: Anicteric, normal conjunctiva, extraocular movements grossly intact Neck: Supple Respiratory: Diminished throughout, normal respiratory effort Cardiovascular: Regular rate GI: Soft, nontender, nondistended Extremities: Trace peripheral edema R > L which is unchanged from her usual Musculoskeletal: Moving all extremities Neuro: No overt focal neurological deficits Skin: No rashes appreciated Psych: Cooperative Assessment & Plan Assessment/Plan (1) Community acquired pneumonia: PLAN: Plan #Community-acquired pneumonia with hypoxia in the setting of COPD/left lobe 1 cm mass ? She will need outpatient follow-up for the 1 cm mass on her left lung ? Continue with azithromycin and Rocephin ? We will check a respiratory panel as well as COVID ? Continue with O2 therapy, wean as able ? Continue with DuoNebs -07/14: CTA with no PE. Patient with interstitial infiltrates versus fibrosis. Respiratory and COVID panel negative, doing well on 2 L O2, continue Rocephin and azithromycin and DuoNebs -07/15: Still feeling fairly short of breath and in conversation goes down to 92% on 2 L with minimal effort. Did have elevated BNP but no previous values, monitoring daily weights, will check echo, will also add IV steroids as patient still very tight and reports she follows with the lung doctor and has confirmed COPD diagnosis #Chronic hyponatremia -Unclear etiology but patient remains low all the way back to 2011, 128 today which is similar to previous -07/15: Asymptomatic, continue present management #Chronic normocytic anemia -Down slightly today compared to yesterday however no active blood loss noted, continue to monitor -07/15: Stable #HTN/HLD ? Blood pressures are stable ? Continue with her blood pressure medications, will monitor and make adjustments as necessary ? Continue with her statin -07/14: Continue present management DVT: Lovenox Time spent in the patient's overall evaluation,decision-making process, review of diagnostic data, adjustment of management, discussion with other providers, nursing nursing and ancillary staff involved in patient's care documentation, 35 minutes Charges/Coding Visit Charges Inpatient E&M: 04249 Subs Hosp L2
[2023-07-15] MEDS: Azithromycin 500 MG in Dextrose 5%-Water (250mL Bag) 250 ML 250 MG IV (10:14)
--- NOTE | 2023-07-15 11:10 | CASEMGMT ---
RODERICK GARRISON Assessment: Face to Face with pt for initial transition planning/care coordination assessment. RODERICK GARRISON introduced self and role at [facility], pt voices understanding and consents to assessment. Pt is A&O x4 and answers all questions appropriately at this time. Pt sitting up in bed in no distress with oxygen on. Care providers, pharmacy, and demographics verified/updated. Admitting Dx:pneumonia PCP:PITA NAVAS Specialists:Denies Preferred Pharmacy:[facility] Insurance: PITA NAVAS Prescription Benefit: yes LNOK: Connie Valdivia, Living Arrangements: Pt lives alone in a two story home with 4 steps to enter with a rail. Pt reports she is I in ADL's, she gets her own meals, does own laundry and gets her own groceries. Pt denies concerns at home. Transportation: Pt drives self and denies concerns with transportation. DME:[facility] HHC/SNF:Pt denies hx of Pt states no concerns with going home at time of dc. Pt states no further concerns/needs. CM to follow. Advised pt to ask CM if any further question/concerns/needs arise, voices understanding. Pt Goal: Home or sister's home Plan: Home or sister's home, follow for oxygen needs
[2023-07-15] MEDS: Doxazosin 1 MG Tablet 2 MG PO (19:49)
[2023-07-15] MEDS: Pravastatin 20 MG Tablet PO (19:50)
[2023-07-16] VITALS (8 sets, daily range): BP systolic 120–138; BP diastolic 45–64; PULSE 77–92; RESP 14–18; TEMP 36.3–36.8; O2SAT 94–96; BMI 24.9
[2023-07-16] MEDS: 0.9% Saline Lock 10 ML Syringe IV ×3 (05:18→21:00)
[2023-07-16 06:01] LABS: Absolute Lymphocyte Count 0.48 X10^3/uL (0.83-4.51); Absolute Neutrophil Count 8.4 X10^3/uL (2.0-7.7); Basophil# 0.01 X10^3/uL; Basophil% 0.1 % (0-1); Hematocrit 28.1 % (37-47); Hemoglobin 9.9 g/dL (12.0-15.0); Lymphocyte # 0.48 X10^3/ul (0.83-4.51); Lymphocyte % 5.3 % (19-41); Mean Corp Hgb Conc 35.2 g/dL (32-36); Mean Corpuscular Hgb 30.6 pg (27.0-32.0); Mean Corpuscular Volume 86.7 fL (81-99); Mean Platelet Vol. 10.7 fl (6.2-12.0); Monocyte# 0.15 X10^3/uL; Monocyte% 1.6 % (0-10); NRBC Flagged by Analyzer 0 % (0-5); Neutrophil # 8.42 X10^3/uL (2.7-7.7); Neutrophil % 92.6 % (47-70); POSITIVE DIFFERENTIAL YES; Platelet Count 202 K/mm3 (150-450); RBC Distribution Width CV 14.9 % (11.6-14.6); RBC Distribution Width SD 47.4 fl (35.1-43.9); Red Blood Count 3.24 M/mm3 (4.2-5.4); White Blood Count 9.1 K/mm3 (4.4-11.0)
[2023-07-16 06:28] LABS: Anion Gap 9 (5-15); BUN 14 mg/dL (7-18); BUN/Creat Ratio 20.7 RATIO (10-20); Calcium,Total 8.1 mg/dL (8.5-10.1); Chloride 88 mmol/L (98-107); Creatinine, Serum 0.68 mg/dL (0.55-1.02); EST Glomerular Filtration Rate 88 mL/min (>60); Est Glom Filt Rate - Afr Amer 106 mL/min (>60); Estimated Creatinine Clearance 34.23 ml/min; Glucose 132 mg/dL (74-106); Potassium 4.6 mmol/L (3.5-5.1); Sodium Level 121 mmol/L (136-145)
[2023-07-16 06:45] LABS: Differential Indicated SCAN CRITERIA MET
[2023-07-16] MEDS: Ipratropium/Albuterol Sulfate 3 ML AMPUL.NEB INHALATION ×3 (06:50→19:52)
[2023-07-16 06:58] LABS: Differential Comment SCANNED; Hypochromasia 1+
[2023-07-16] MEDS: Bisoprolol Fumarate 5 MG Tablet 10 MG PO (07:37)
[2023-07-16] MEDS: Losartan Potassium 100 MG Tablet PO (07:37)
[2023-07-16] MEDS: Enoxaparin 40 MG/0.4 ML Syringe SC (07:38)
[2023-07-16] MEDS: amLODIPine 10 MG Tablet PO ×2 (07:38→20:59)
[2023-07-16 08:55] LABS: Cholesterol 128 mg/dL (200); High Density Lipoprotein 77 mg/dL; Triglycerides 37 mg/dL; Very Low Density Lipoprotein 7 mg/dL (5-40)
[2023-07-16 08:56] LABS: BNP,B-Type NATRIURETIC PEPTIDE 568.8 pg/mL (0-100)
[2023-07-16 09:54] LABS: Osmolality, Serum 251 mOsm/KG (280-301)
[2023-07-16] MEDS: Azithromycin 500 MG in Dextrose 5%-Water (250mL Bag) 250 ML 250 MG IV (11:12)
[2023-07-16] MEDS: Ceftriaxone 1 GM/50 ML BAG IV (12:43)
--- NOTE | 2023-07-16 14:31 | PCM.PN.HOSP ---
Reason for Visit Reason for Visit: Diagnoses Pneumonia, unspecified organism (07/13/23) Subjective Subjective Still short of breath primarily on exertion, not coughing Objective Data Objective Data Vital Signs: Vital Signs Temp Pulse Resp BP Pulse Ox O2 Del Method O2 Flow Rate 98.2 F 77 18 120/45 L 95 Room Air 1 07/16/23 11:16 07/16/23 11:16 07/16/23 11:16 07/16/23 11:16 07/16/23 11:16 07/16/23 11:16 07/16/23 06:51 Oxygen Flow Rate (L/min) 1 Oxygen Delivery Method Room Air Weight: 65.9 kg Body Mass Index (BMI) 24.9 Intake & Output: Intake and Output for Last 24 Hours 07/14/23 07/15/23 07/16/23 23:59 23:59 23:59 Intake Total 1205 / 1205 1555 / 2055 1705 / 1705 Balance 1205 / 1205 1555 / 2055 1705 / 1705 Lab / Micro Data 07/16/23 05:15 07/16/23 05:15 Labs: Laboratory Results - last 24 hr 07/16/23 05:15: WBC 9.1, RBC 3.24 L, Hgb 9.9 L, Hct 28.1 L, MCV 86.7, MCH 30.6, MCHC 35.2 D, RDW Std Deviation 47.4 H, RDW Coeff of Nina 14.9 H, Plt Count 202, MPV 10.7, Immature Gran % (Auto) 0.400, Neut % (Auto) 92.6 H, Lymph % (Auto) 5.3 L, [place] % (Auto) 1.6, Eos % (Auto) 0.0, Baso % (Auto) 0.1, Absolute Neuts (auto) 8.4 H, Absolute Lymphs (auto) 0.48 L, Nucleated RBC % 0, Differential Comment SCANNED, Hypochromasia 1+, Sodium 121 L, Potassium 4.6, Chloride 88 L, Carbon Dioxide 24.0, Anion Gap 9, BUN 14, Creatinine 0.68, Estim Creat Clear Calc 34.23, Est GFR (MDRD) Af Amer 106, Est GFR (MDRD) Non-Af 88, BUN/Creatinine Ratio 20.7 H, Glucose 132 H, Calcium 8.1 L, Triglycerides 37, Cholesterol 128, LDL Cholesterol 44, VLDL Cholesterol 7, HDL Cholesterol 77 07/16/23 08:14: Serum Osmolality 251 L, B-Natriuretic Peptide 568.8 H Micro: Microbiology 07/13/23 12:45 Blood Culture (Wb) - Anticubital Left Blood Culture - Preliminary No growth in 48 hours. 07/13/23 12:50 Blood Culture (Wb) - Anticubital Right Blood Culture - Preliminary No growth in 48 hours. 07/13/23 16:22 Mucosa - Nose Respiratory Panel (PCR) - Final 07/13/23 15:50 Nasal Secretion SARS-CoV-2 Antigen (Rapid) - Final Radiography Diagnostic Testing: Radiology Impression Echocardiogram 07/15/23 09:59 Interpretation Summary The estimated ejection fraction is 60-65 %. Mild calcific aortic valve stenosis. Aortic valve area Aortic valve area 1.4 cm??. Aortic maximal pressure gradient 19.3 mmHg. Aortic mean pressure gradient 10.6 mmhg No prior echo to compare Ordering Physician: Jaimie Dela Cruz Referring Physician: SHELDON SWANSON Performed By: Zenaida Nelson RDCS Physical Exam Narrative General: Alert, oriented, no apparent distress HEENT: Atraumatic, normocephalic Eyes: Anicteric, normal conjunctiva, extraocular movements grossly intact Neck: Supple Respiratory: Diminished throughout, normal respiratory effort Cardiovascular: Regular rate GI: Soft, nontender, nondistended Extremities: Trace peripheral edema R > L which is unchanged from her usual Musculoskeletal: Moving all extremities Neuro: No overt focal neurological deficits Skin: No rashes appreciated Psych: Cooperative Assessment & Plan Assessment/Plan (1) Community acquired pneumonia: PLAN: Plan #Community-acquired pneumonia with hypoxia in the setting of COPD/left lobe 1 cm mass ? She will need outpatient follow-up for the 1 cm mass on her left lung ? Continue with azithromycin and Rocephin ? We will check a respiratory panel as well as COVID ? Continue with O2 therapy, wean as able ? Continue with DuoNebs -07/14: CTA with no PE. Patient with interstitial infiltrates versus fibrosis. Respiratory and COVID panel negative, doing well on 2 L O2, continue Rocephin and azithromycin and DuoNebs -07/15: Still feeling fairly short of breath and in conversation goes down to 92% on 2 L with minimal effort. Did have elevated BNP but no previous values, monitoring daily weights, will check echo, will also add IV steroids as patient still very tight and reports she follows with the lung doctor and has confirmed COPD diagnosis -07/16: Patient finished azithromycin and is on Rocephin as well as nebs and prednisone, echo obtained yesterday and EF 60 to 65% with mild aortic valve stenosis, no comment on diastolic function however does have elevated BNP and chest x-ray did appear to have infiltrates which may in part have been pulmonary edema and there were small bilateral pleural effusions so do suspect component of overload which is likely why she has not responded as well as anticipated to other measures. Patient reported when she got up to go to the bathroom O2 dropped to 85% and the short distance, will give trial of diuresis, may have component of diastolic dysfunction #Acute on chronic hyponatremia -Unclear etiology but patient remains low all the way back to 2011, 128 today which is similar to previous -07/15: Asymptomatic, continue present management -07/16: Hypotonic hyponatremia, serum osmolality 251, sodium is trended down to 121. Awaiting urine studies. 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 Patient presently asymptomatic. Further treatment once urine studies available. Did stop her Etodolac as well #Chronic normocytic anemia -Down slightly today compared to yesterday however no active blood loss noted, continue to monitor -07/15: Stable #HTN/HLD ? Blood pressures are stable ? Continue with her blood pressure medications, will monitor and make adjustments as necessary ? Continue with her statin -07/14: Continue present management DVT: Lovenox Time spent in the patient's overall evaluation,decision-making process, review of diagnostic data, adjustment of management, discussion with other providers, nursing nursing and ancillary staff involved in patient's care documentation, 45 minutes Charges/Coding Visit Charges Inpatient E&M: 49859 Subs Hosp L2
[2023-07-16] MEDS: Furosemide 40 MG/4 ML Vial IV (16:11)
[2023-07-16] MEDS: Doxazosin 1 MG Tablet 2 MG PO (20:59)
[2023-07-16] MEDS: Pravastatin 20 MG Tablet PO (20:59)
[2023-07-17] VITALS (11 sets, daily range): BP systolic 119–124; BP diastolic 52–70; PULSE 69–90; RESP 16–18; TEMP 36.5–37.1; O2SAT 87–97; BMI 24.3
[2023-07-17 01:51] LABS: Urea Nitrogen, Urine 189 mg/dL (NO RANGE EST.); Urine Chloride 30 mmol/L (Not Establ.); Urine Sodium 34 mmol/L (Not Establ.)
[2023-07-17 02:01] LABS: Osmolality, Urine 161 mOsm/KG
--- NOTE | 2023-07-17 07:19 | PN.HOSP_ITS ---
Reason for Visit Reason for Visit: Diagnoses Pneumonia, unspecified organism (07/13/23) Subjective Subjective Patient is an 88-year-old lady who presented with shortness of breath currently being managed as a case of community-acquired pneumonia in the setting of COPD exacerbation Objective Data Objective Data Vital Signs: Vital Signs Temp Pulse Resp BP Pulse Ox O2 Del Method O2 Flow Rate 98 F 71 18 119/52 L 92 Room Air 1 07/17/23 05:39 07/17/23 05:39 07/17/23 05:39 07/17/23 05:39 07/17/23 05:39 07/17/23 05:39 07/17/23 01:10 Oxygen Flow Rate (L/min) 1 Oxygen Delivery Method Room Air Weight: 64.6 kg Body Mass Index (BMI) 24.3 Intake & Output: Intake and Output for Last 24 Hours 07/15/23 07/16/23 07/17/23 23:59 23:59 23:59 Intake Total 1555 / 2055 2255 / 3055 1000 / 1000 Output Total 750 / 750 800 / 800 Balance 1555 / 2055 1505 / 2305 200 / 200 Lab / Micro Data 07/17/23 08:15 07/17/23 08:15 Labs: Laboratory Results - last 24 hr 07/16/23 01:20: Urine Osmolality 161, Ur Random Sodium 34, Urine Creatinine 17.90, Urine Potassium 9.0, Urine Chloride 30, Urine Urea Nitrogen 189 07/16/23 05:15: Triglycerides 37, Cholesterol 128, LDL Cholesterol 44, VLDL Cholesterol 7, HDL Cholesterol 77 07/16/23 08:14: Serum Osmolality 251 L, B-Natriuretic Peptide 568.8 H Micro: Microbiology 07/13/23 12:45 Blood Culture (Wb) - Anticubital Left Blood Culture - Preliminary No growth in 48 hours. 07/13/23 12:50 Blood Culture (Wb) - Anticubital Right Blood Culture - Preliminary No growth in 48 hours. 07/13/23 16:22 Mucosa - Nose Respiratory Panel (PCR) - Final 07/13/23 15:50 Nasal Secretion SARS-CoV-2 Antigen (Rapid) - Final Physical Exam Narrative GENERAL: cooperative HEENT: Atraumatic; normocephalic EYES; Anicteric, Normal Conjunctiva NECK; supple, normal thyroid, RESPIRATORY: Diminished to auscultation CARDIOVASCULAR: Regular S1 S2, GI: soft, normoactive bowel sounds, : No Renal angle tenderness; EXTREMITIES: No edema, no clubbing, MUSCULOSKELETAL: no muscle wasting NEURO: Awake; no lateralizing signs. SKIN: No Rash PSYCH; Flat affect Assessment & Plan Assessment/Plan (1) Community acquired pneumonia: QUALIFIERS: Laterality: left Lung location: lower lobe of lung Qualified Code(s): J18.9 - Pneumonia, unspecified organism PLAN: Plan Patient is an 88-year-old lady who presented with shortness of breath currently being managed as a case of community-acquired pneumonia in the setting of COPD exacerbation 1. Pneumonia - Suspected to be secondary to streptococcal pneumonia, Blood and sputum cultures sent. Patient placed on Rocephin and Zithromax and placed on oxygen titrated to keep Pulse Ox greater than 90. Cultures sent results pending 2. 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 Anemia ? Secondary to chronic disorder monitoring H&H and transfuse if patient becomes symptomatic or hemoglobin falls below 7 4. Left lower lobe mass 1 cm in diameter ? Patient to follow-up with primary care physician for serial monitoring 5. Hypertension ? Blood pressure controlled, home medications continued with dose adjustment as needed 6. Dyslipidemia ?Patient is on statin therapy, continued at home dose 7. Physical deconditioning ? Requested for PT OT eval and social sciences department chair to assist with discharge planning 8. DVT prophylaxis ? On enoxaparin Time spent in the patient's overall evaluation,decision-making process, review of diagnostic data, adjustment of management, discussion with other providers, nursing nursing and ancillary staff involved in patient's care documentation, 40 minutes Charges/Coding Visit Charges Inpatient E&M: 97644 Subs Hosp L2
[2023-07-17] MEDS: Ipratropium/Albuterol Sulfate 3 ML AMPUL.NEB INHALATION ×3 (07:33→15:32)
[2023-07-17 08:44] LABS: Absolute Lymphocyte Count 0.94 X10^3/uL (0.83-4.51); Absolute Neutrophil Count 9.5 X10^3/uL (2.0-7.7); Basophil# 0.02 X10^3/uL; Basophil% 0.2 % (0-1); Eosinophil# 0.03 X10^3/uL; Eosinophils% 0.3 % (0-5); Hematocrit 28.9 % (37-47); Hemoglobin 10.1 g/dL (12.0-15.0); Lymphocyte # 0.94 X10^3/ul (0.83-4.51); Lymphocyte % 8.1 % (19-41); Mean Corp Hgb Conc 34.9 g/dL (32-36); Mean Corpuscular Hgb 30.4 pg (27.0-32.0); Mean Platelet Vol. 10.2 fl (6.2-12.0); Monocyte# 1.02 X10^3/uL; Monocyte% 8.8 % (0-10); NRBC Flagged by Analyzer 0 % (0-5); Platelet Count 244 K/mm3 (150-450); RBC Distribution Width CV 15.4 % (11.6-14.6); RBC Distribution Width SD 48.7 fl (35.1-43.9); Red Blood Count 3.32 M/mm3 (4.2-5.4); White Blood Count 11.6 K/mm3 (4.4-11.0)
[2023-07-17] MEDS: Enoxaparin 40 MG/0.4 ML Syringe SC (09:09)
[2023-07-17] MEDS: Losartan Potassium 100 MG Tablet PO (09:09)
[2023-07-17] MEDS: amLODIPine 10 MG Tablet PO (09:09)
[2023-07-17] MEDS: predniSONE 20 MG Tablet 40 MG PO (09:09)
[2023-07-17 09:10] LABS: Anion Gap 8 (5-15); BUN 15 mg/dL (7-18); BUN/Creat Ratio 20.3 RATIO (10-20); Calcium,Total 8.3 mg/dL (8.5-10.1); Chloride 93 mmol/L (98-107); Creatinine, Serum 0.74 mg/dL (0.55-1.02); EST Glomerular Filtration Rate 79 mL/min (>60); Est Glom Filt Rate - Afr Amer 95 mL/min (>60); Estimated Creatinine Clearance 34.23 ml/min; Glucose 95 mg/dL (74-106); Potassium 3.9 mmol/L (3.5-5.1); Sodium Level 128 mmol/L (136-145)
[2023-07-17] MEDS: Bisoprolol Fumarate 5 MG Tablet 10 MG PO (09:10)
[2023-07-17] MEDS: Ceftriaxone 1 GM/50 ML BAG IV (09:11)
[2023-07-17] MEDS: 0.9% Saline Lock 10 ML Syringe IV (09:12)
--- NOTE | 2023-07-17 10:17 | CASEMGMT ---
Social Work SW met with pt to discuss advance directives.? Pt confirms she has completed a living will and health care POA naming her sister Connie Valdivia.? Pt notified that documents are not on file at [facility] and SW requested they be brought in for scanning into the EMR.? DEMARIO Hernandez
--- NOTE | 2023-07-17 14:06 | PCM.DC.SUM ---
Providers Date of Admission: 07/13/23 Date of Discharge: 07/17/23 Primary Care Physician: Dr. Karl Ibarra MD Reason For Visit: PNEUMONIA Diagnosis Discharge Diagnosis (1) Community acquired pneumonia: Status: Acute Code(s): J18.9 - Pneumonia, unspecified organism Qualifiers: Laterality: left Lung location: lower lobe of lung Qualified Code(s): J18.9 - Pneumonia, unspecified organism Plan Patient is an 88-year-old lady who presented with shortness of breath currently being managed as a case of community-acquired pneumonia in the setting of COPD exacerbation 1. Pneumonia - Suspected to be secondary to streptococcal pneumonia, Blood and sputum cultures sent. Patient placed on Rocephin and Zithromax and placed on oxygen titrated to keep Pulse Ox greater than 90. Cultures sent results pending 2. 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 Anemia ? Secondary to chronic disorder monitoring H&H and transfuse if patient becomes symptomatic or hemoglobin falls below 7 4. Left lower lobe mass 1 cm in diameter ? Patient to follow-up with primary care physician for serial monitoring 5. Hypertension ? Blood pressure controlled, home medications continued with dose adjustment as needed 6. Dyslipidemia ?Patient is on statin therapy, continued at home dose 7. Physical deconditioning ? Requested for PT OT eval and social service coordinator to assist with discharge planning 8. DVT prophylaxis ? On enoxaparin Time spent in the patient's overall evaluation,decision-making process, review of diagnostic data, adjustment of management, discussion with other providers, nursing nursing and ancillary staff involved in patient's care documentation, 40 minutes Medications at Discharge Home Medications amlodipine 10 mg tablet (Norvasc) 10 mg PO BID HTN 09/28/17 calcium citrate 200 mg calcium-vitamin D3 6.25 mcg (250 unit) tablet (Citracal-D3 Petites) 1 ea PO DAILY supplement 09/28/17 cholecalciferol (vitamin D3) 25 mcg (1,000 unit) capsule (Vitamin D3) 1,000 unit PO DAILY supplement 09/28/17 oxeyhslc-xod-geyis acid 0.4 mg-lycopene 300 mcg-lutein 250 mcg tablet (Centrum Silver) 1 ea PO DAILY supplement 09/28/17 nabumetone 500 mg tablet 500 mg PO BID arthritis 09/28/17 pravastatin 20 mg tablet 20 mg PO QHS cholesterol 09/28/17 vit C 250 mg-vit E 90 mg-zinc 40 mg-copper 1 ls-olkbrt-egxrur capsule (PreserVision AREDS-2) 1 ea PO BID eyes 09/28/17 albuterol sulfate 90 mcg/actuation aerosol inhaler 2 puff IH Q4H PRN PRN Sob &/Or Wheezing 03/06/19 guaifenesin 1,200 mg tablet, extended release 12 hr 1,200 mg PO BID PRN Congestion 06/12/19 bisoprolol fumarate 10 mg tablet 10 mg PO DAILY 07/13/23 losartan 100 mg tablet 100 mg PO DAILY 07/13/23 terazosin 2 mg capsule 2 mg PO QHS 07/13/23 tiotropium 2.5 mcg-olodaterol 2.5 mcg/actuation mist for inhalation (Stiolto Respimat) 2 puff inhalation Q24H 07/13/23 cefdinir 300 mg capsule 300 mg PO BID #10 caps 07/17/23 prednisone 20 mg tablet 40 mg (2 x 20 mg) PO DAILYCM 5 days #10 tabs 07/17/23 sodium chloride 0.65 % nasal spray aerosol (Deep Sea Nasal) 2 spray NASAL TID PRN PRN NASAL DRYNESS #100 mL 07/17/23 Hospital Course Summary of Care Provided Minutes Spent on Discharge: 35 Physical Exam Narrative GENERAL: cooperative HEENT: Atraumatic; normocephalic EYES; Anicteric, Normal Conjunctiva NECK; supple, normal thyroid, RESPIRATORY: Diminished to auscultation CARDIOVASCULAR: Regular S1 S2, GI: soft, normoactive bowel sounds, : No Renal angle tenderness; EXTREMITIES: No edema, no clubbing, MUSCULOSKELETAL: no muscle wasting NEURO: Awake; no lateralizing signs. SKIN: No Rash PSYCH; Flat affect Weight / BMI Weight Weight: 64.6 kg Body Mass Index (BMI) 24.3 ABG / Lab / Microbiology Data 07/17/23 08:15 07/17/23 08:15 Laboratory: Laboratory Results - last 24 hr 07/16/23 01:20: Urine Osmolality 161, Ur Random Sodium 34, Urine Creatinine 17.90, Urine Potassium 9.0, Urine Chloride 30, Urine Urea Nitrogen 189 07/17/23 08:15: WBC 11.6 H, RBC 3.32 L, Hgb 10.1 L, Hct 28.9 L, MCV 87.0, MCH 30.4, MCHC 34.9, RDW Std Deviation 48.7 H, RDW Coeff of Nina 15.4 H, Plt Count 244, MPV 10.2, Immature Gran % (Auto) 0.600, Neut % (Auto) 82.0 H, Lymph % (Auto) 8.1 L, [place] % (Auto) 8.8, Eos % (Auto) 0.3, Baso % (Auto) 0.2, Absolute Neuts (auto) 9.5 H, Absolute Lymphs (auto) 0.94, Nucleated RBC % 0, Sodium 128 L, Potassium 3.9, Chloride 93 L, Carbon Dioxide 27.0, Anion Gap 8, BUN 15, Creatinine 0.74, Estim Creat Clear Calc 34.23, Est GFR (MDRD) Af Amer 95, Est GFR (MDRD) Non-Af 79, BUN/Creatinine Ratio 20.3 H, Glucose 95, Calcium 8.3 L Microbiology: Microbiology 07/13/23 12:45 Blood Culture (Wb) - Anticubital Left Blood Culture - Preliminary No growth in 48 hours. 07/13/23 12:50 Blood Culture (Wb) - Anticubital Right Blood Culture - Preliminary No growth in 48 hours. 07/13/23 16:22 Mucosa - Nose Respiratory Panel (PCR) - Final 07/13/23 15:50 Nasal Secretion SARS-CoV-2 Antigen (Rapid) - Final D/C Instructions Discharge Diet: No restrictions Discharge Activity: Return to Normal Activity Call your doctor if you observe: Fever of 101 or Higher, Shortness of breath, Fainting spells and Chest pain Meaningful Use Info Meaningful Use Diagnoses (Choose all that apply): None applicable Discharge Plan Admission Admit Date/Time: 07/13/23 14:36 Attending Provider: Jeff Davis Primary Care Provider: Karl Ibarra Consulting Providers: Seth Watt; Jaimie Dela Cruz Instructions Additional Instructions / Restrictions: - Please follow-up outpatient for monitoring of the spot seen on your lung Discharge Orders/Prescriptions Prescriptions: New prednisone 20 mg Tablet 40 mg PO DAILYCM 5 Days Qty: 10 0RF Deep Sea Nasal 0.65 % Aerosol,[place] 2 spray NASAL TID PRN PRN (Reason: NASAL DRYNESS) Qty: 100 0RF cefdinir 300 mg capsule 300 mg PO BID Qty: 10 0RF Continued amlodipine [Norvasc] 10 MG tablet 10 mg PO BID pravastatin 20 MG tablet 20 mg PO QHS nabumetone 500 MG tablet 500 mg PO BID cholecalciferol (vitamin D3) [Vitamin D3] 1,000 UNIT capsule 1,000 unit PO DAILY Centrum Silver 1 EACH tablet 1 ea PO DAILY calcium citrate-vitamin D3 [Citracal-D3 Petites] 1 EACH tablet 1 ea PO DAILY PreserVision AREDS-2 1 EACH capsule 1 ea PO BID albuterol sulfate 90 MCG HFA aerosol inhaler 2 puff IH Q4H PRN PRN (Reason: Sob &/Or Wheezing) guaifenesin 1,200 MG tablet 1,200 mg PO BID PRN (Reason: Congestion) terazosin 2 mg capsule 2 mg PO QHS losartan 100 mg tablet 100 mg PO DAILY Stiolto Respimat 2.5-2.5 mcg/actuation mist 2 puff INHALATION Q24H bisoprolol fumarate 10 mg tablet 10 mg PO DAILY Referrals / Follow Up: Karl Ibarra MD [Primary Care Provider] - Within 1 Week (For repeat BMP) Disposition Disposition (needs filled in before D/C Order can be placed): Home, Self Care Charges/Coding Visit Charges Inpatient E&M: 35995 Disch Hosp >30min
--- NOTE | 2023-07-17 15:20 | CASEMGMT ---
RN CM into pt room, pt denies any homegoing needs. Pt sister present and pt states she is going to stay with her for a little while. Pt did not qualify for home oxygen.
--- NOTE | 2023-07-17 17:58 | PHA.DC.MC.R ---
Pharmacy [facility] has performed discharge medication reconciliation and counseling for this patient. The patient's discharge medication list was reviewed for discrepancies and discrepancies were resolved. The patient was counseled on the following discharge medications and changes in medications for homegoing were reviewed. 1. PREDNISONE 2. CEFDINIR The Reason for Use, instructions for use, and potential side effects were reviewed for all new medications. The patient's questions regarding all of their medications were answered. The patient was able to verbally demonstrate an understanding of their discharge medications. The patient was counselled by Carlos Ahmadi PharmD Candidate Medications at Discharge Home Medications amlodipine 10 mg tablet (Norvasc) 10 mg PO BID HTN 09/28/17 calcium citrate 200 mg calcium-vitamin D3 6.25 mcg (250 unit) tablet (Citracal-D3 Petites) 1 ea PO DAILY supplement 09/28/17 cholecalciferol (vitamin D3) 25 mcg (1,000 unit) capsule (Vitamin D3) 1,000 unit PO DAILY supplement 09/28/17 rwxulgtk-ble-mfahu acid 0.4 mg-lycopene 300 mcg-lutein 250 mcg tablet (Centrum Silver) 1 ea PO DAILY supplement 09/28/17 nabumetone 500 mg tablet 500 mg PO BID arthritis 09/28/17 pravastatin 20 mg tablet 20 mg PO QHS cholesterol 09/28/17 vit C 250 mg-vit E 90 mg-zinc 40 mg-copper 1 iv-uuexlq-yxabju capsule (PreserVision AREDS-2) 1 ea PO BID eyes 09/28/17 albuterol sulfate 90 mcg/actuation aerosol inhaler 2 puff IH Q4H PRN PRN Sob &/Or Wheezing 03/06/19 guaifenesin 1,200 mg tablet, extended release 12 hr 1,200 mg PO BID PRN Congestion 06/12/19 bisoprolol fumarate 10 mg tablet 10 mg PO DAILY 07/13/23 losartan 100 mg tablet 100 mg PO DAILY 07/13/23 terazosin 2 mg capsule 2 mg PO QHS 07/13/23 tiotropium 2.5 mcg-olodaterol 2.5 mcg/actuation mist for inhalation (Stiolto Respimat) 2 puff inhalation Q24H 07/13/23 cefdinir 300 mg capsule 300 mg PO BID #10 caps 07/17/23 prednisone 20 mg tablet 40 mg (2 x 20 mg) PO DAILYCM 5 days #10 tabs 07/17/23 sodium chloride 0.65 % nasal spray aerosol (Deep Sea Nasal) 2 spray NASAL TID PRN PRN NASAL DRYNESS #100 mL 07/17/23
== END 2023-07-17 16:16 | disposition home or self-care (01) | DRG 193 ==
LOC: ED 14:10 → MS3 14:43
PROVIDERS: Internal Medicine; Admitting Provider Family Medicine; Emergency Provider Emergency Medicine; PCP Internal Medicine; Visit Provider Internal Medicine
DX: J15.4 Pneumonia due to other streptococci (principal); I50.33 Acute on chronic diastolic (congestive) heart failure; E22.2 Syndrome of inappropriate secretion of antidiuretic hormone; J44.0 Chronic obstructive pulmonary disease with (acute) lower respiratory infection; J44.1 Chronic obstructive pulmonary disease with (acute) exacerbation; I11.0 Hypertensive heart disease with heart failure; D63.8 Anemia in other chronic diseases classified elsewhere; E78.5 Hyperlipidemia, unspecified; R91.8 Other nonspecific abnormal finding of lung field; R09.02 Hypoxemia; R53.81 Other malaise; Z77.22 Contact with and (suspected) exposure to environmental tobacco smoke (acute) (chronic); Z79.899 Other long term (current) drug therapy
CPT/HCPCS: 36415; 71045; 71275; 80048; 80061; 82436; 82570; 83605; 83735; 83880; 83930; 83935; 84133; 84300; 84443; 84484; 84540; 85025; 85379; 85610; 85730; 87040; 87633; 87811; 93005; 93306; 94640; 94762; 99285; J7050; Q9967; A4216; J1940